=== PATIENT | female | born 1950 | race Asian ===

== ENCOUNTER → 2019-12-24 12:06 | Outpatient (CLI) | payer MEDICARE, OTHER, SELFPAY ==
--- NOTE | 2019-12-24 | DI.MG.S_ITS ---
BILATERAL DIGITAL SCREENING MAMMOGRAM 3D/2D WITH CAD: 12/24/2019 CLINICAL: Routine screening. Comparison is made to exams dated: 12/09/2017 mammogram, 05/14/2016 mammogram, and 05/16/2015 mammogram - [facility]. There are scattered fibroglandular elements in both breasts. Current study was also evaluated with a Computer Aided Detection (CAD) system. There is a focal asymmetry in the left breast at 8 o'clock posterior depth. No other significant masses, calcifications, or other findings are seen in either breast. IMPRESSION: INCOMPLETE: NEEDS ADDITIONAL IMAGING EVALUATION The focal asymmetry in the left breast is indeterminate. Additional views with possible ultrasound are recommended. This exam was interpreted at Station ID: [id number]. NOTE: For mammograms, a report in lay terms will be sent to the patient. Approximately 15% of breast malignancies will not be visualized mammographically. In the management of a palpable breast mass, a negative mammogram must not discourage biopsy of a clinically suspicious lesion. Electronically Signed By: Ana basurto/yesika:12/25/2019 09:53:25 letter sent: Additional Imaging Needed ACR BI-RADS Category 0: Incomplete 3340F
== END ==
PROVIDERS: Referring Provider Internal Medicine; Visit Provider Internal Medicine
DX: Z12.31 Encounter for screening mammogram for malignant neoplasm of breast (principal)
CPT/HCPCS: 77063; 77067

== ENCOUNTER → 2020-01-01 07:38 | Outpatient (CLI) | payer MEDICARE, OTHER, SELFPAY ==
--- NOTE | 2020-01-01 | DI.MG.S_ITS ---
UNILATERAL LEFT DIGITAL DIAGNOSTIC MAMMOGRAM 3D/2D WITH ADDITIONAL VIEWS: 01/01/2020 CLINICAL: Additional evaluation requested from prior study. Comparison is made to exams dated: 12/24/2019 mammogram - [facility], 12/09/2017 mammogram, and 05/14/2016 mammogram - [facility]. There are scattered fibroglandular elements in left breast. There is a persistent 1 cm focal asymmetry in the left breast at 7 o'clock middle depth. This is less prominent. No other significant masses or calcifications are seen in the breast. IMPRESSION: INCOMPLETE: NEEDS ADDITIONAL IMAGING EVALUATION The 1 cm focal asymmetry in the left breast is indeterminate. An ultrasound is recommended for further evaluation and is scheduled to immediately follow this study. This exam was interpreted at Station ID: [id number]. NOTE: For mammograms, a report in lay terms will be sent to the patient. Approximately 15% of breast malignancies will not be visualized mammographically. In the management of a palpable breast mass, a negative mammogram must not discourage biopsy of a clinically suspicious lesion. Electronically Signed By: Stanislaw Reddy M.D. aty/:01/01/2020 12:59:39 ACR BI-RADS Category 0: Incomplete 3340F
--- NOTE | 2020-01-01 | DI.US.S_ITS ---
ULTRASOUND OF LEFT BREAST: 01/01/2020 CLINICAL: Additional evaluation requested from prior study. Comparison is made to exams dated: 01/01/2020 mammogram, 12/24/2019 mammogram - [facility], 12/09/2017 mammogram, 05/14/2016 mammogram, and 05/16/2015 mammogram - [facility]. Color flow and real-time ultrasound of the left breast were performed. Avitia scale images of the real-time examination were reviewed. There is a 1.2 cm x 1 cm x 0.5 cm wider than tall oval cyst in the left breast at 7 o'clock middle depth 4 cm from the nipple. This oval cyst is hypoechoic with minimal internal echoes/debris and small peripheral versus adjacent coarse calcification. This correlates with mammography findings. Color flow imaging demonstrates that there is no vascularity present. There also is a 0.4 cm x 0.4 cm oval mass with a circumscribed margin in the left breast at 9 o'clock anterior depth 2 cm from the nipple. This oval mass is hypoechoic with a hyperechoic rim likely representing rim calcification and has associated posterior acoustic shadowing. Color flow imaging demonstrates that there is possible vascularity present versus twinkling artifact from calcification. Of note, there are similarly sized, benign oval calcifications in the left breast corresponding to this finding. IMPRESSION: PROBABLY BENIGN The 1.2 cm x 1 cm x 0.5 cm wider than tall oval cyst in the left breast at 7 o'clock middle depth most likely is a complicated cyst and is probably benign. The 0.4 cm x 0.4 cm oval mass in the left breast at 9 o'clock anterior depth likely represents a focus of dystrophic calcification versus probably benign mass. This is probably benign. A follow-up left mammogram and an ultrasound in 6 months is recommended to demonstrate stability. This exam was interpreted at Station ID: [id number]. Electronically Signed By: Stanislaw Reddy M.D. aty/:01/01/2020 13:08:46 letter sent: Followup Recommended Ultrasound BI-RADS: 3 Probably benign
== END ==
PROVIDERS: PCP Internal Medicine; Referring Provider Internal Medicine; Visit Provider Internal Medicine
DX: R92.8 Other abnormal and inconclusive findings on diagnostic imaging of breast (principal); N60.02 Solitary cyst of left breast; N63.25 Unspecified lump in the left breast, overlapping quadrants
CPT/HCPCS: 76642; 77065; G0279

== ENCOUNTER → 2021-04-20 09:02 | Outpatient (CLI) | payer MEDICARE, OTHER, SELFPAY ==
--- NOTE | 2021-04-20 | DI.US.S_ITS ---
LIMITED ULTRASOUND OF LEFT BREAST: 04/20/2021 CLINICAL: Patient returns for short term follow-up of a probably benign masses in the left breast. Comparison is made to exams dated: 04/20/2021 mammogram, 01/01/2020 ultrasound, 01/01/2020 mammogram, 12/24/2019 mammogram - [facility], 12/09/2017 mammogram, and 05/14/2016 mammogram - [facility]. Color flow and real-time ultrasound of the left breast 9 o'clock region were performed. Avitia scale images of the real-time examination were reviewed. There is a benign 0.6 cm x 0.7 cm x 0.2 cm wider than tall oval cyst in the left breast at 9 o'clock middle depth 4 cm from the nipple. This oval cyst is anechoic. This abnormality has decreased in size and correlates with findings of near complete resolution on mammogram. Color flow imaging demonstrates that there is no vascularity present. Incidental note made of stable 0.4 cm x 0.4 cm x 0.3 cm oval area of fibroglandular tissue with a circumscribed margin in the left breast at 9 o'clock anterior depth 2 cm from the nipple. This correlates as an incidental finding without distinct mammographic correlate and is adjacent to a prominent dystrophic calcification. Color flow imaging demonstrates that there is no vascularity present. IMPRESSION: BENIGN The 0.6 cm cyst in the left breast at 9 o'clock middle depth is consistent with a simple cyst and is benign. The 0.4 cm oval area of fibroglandular tissue in the left breast at 9 o'clock anterior depth is stable and appears benign. Return to annual mammogram screening schedule is recommended. Findings and recommendations were conveyed to the patient at time of exam. This exam was interpreted at Station ID: [id number]. Electronically Signed By: Pao avelar/:04/20/2021 10:50:54 letter sent: Normal Exam Ultrasound BI-RADS: 2 Benign
--- NOTE | 2021-04-20 | DI.MG.S_ITS ---
BILATERAL DIGITAL DIAGNOSTIC MAMMOGRAM 3D/2D SHORT-TERM FOLLOW-UP: 04/20/2021 CLINICAL: Short term follow up of the left breast, due for bilateral imaging. Comparison is made to exams dated: 01/01/2020 mammogram, 12/24/2019 mammogram - [facility], and 12/09/2017 mammogram - [facility]. There are scattered fibroglandular elements in both breasts. The oval focal asymmetry in the left breast at 7 o'clock middle depth is no longer seen. No other significant masses, calcifications, or other findings are seen in either breast. IMPRESSION: INCOMPLETE: NEEDS ADDITIONAL IMAGING EVALUATION An ultrasound is recommended to confirm resolution of the oval focal asymmetry in the left breast middle depth. This was performed immediately following this exam. Mammograms are otherwise stable. This exam was interpreted at Station ID: [id number]. NOTE: For mammograms, a report in lay terms will be sent to the patient. Approximately 15% of breast malignancies will not be visualized mammographically. In the management of a palpable breast mass, a negative mammogram must not discourage biopsy of a clinically suspicious lesion. Electronically Signed By: Pao avelar/:04/20/2021 10:16:19 ACR BI-RADS Category 0: Incomplete 3340F
== END ==
PROVIDERS: PCP Internal Medicine; Referring Provider Internal Medicine; Visit Provider Internal Medicine
DX: R92.8 Other abnormal and inconclusive findings on diagnostic imaging of breast (principal)
CPT/HCPCS: 76642; 77066; G0279

== ENCOUNTER 2023-01-02 09:06 | Emergency (ER) | payer MEDICARE, OTHER, SELFPAY ==
[2023-01-02 09:15] VITALS: BP 204/90; PULSE 92; RESP 18; TEMP 36.6; O2SAT 99; BMI 28.3
[2023-01-02 09:17] VITALS: PULSE 86; O2SAT 97
[2023-01-02 09:30] VITALS: BP 157/70; PULSE 77; O2SAT 98
[2023-01-02 10:00] VITALS: BP 129/60; PULSE 80; O2SAT 96
--- NOTE | 2023-01-02 10:09 | ED.SKABFB ---
HPI - Skin/Abscess/Foreign Bdy General Chief complaint: Skin/Abscess/Foreign Body Stated complaint: mole on buttocks is hurting Time Seen by Provider: 01/02/23 10:02 Source: patient Mode of arrival: Ambulatory Limitations: no limitations History of Present Illness HPI narrative: Patient here with complains of a skin lesion on the right inferior gluteus that has been there since she was a child. However 1 day ago had some clear drainage from it. No increased size of this lesion. It is a size of a pencil eraser head. Related Data Home Medications Medication Instructions Recorded Confirmed amlodipine 5 mg tablet 5 mg PO DAILY 01/02/23 01/02/23 apixaban 5 mg tablet (Eliquis) 5 mg PO BID 01/02/23 01/02/23 Previous Rx's Medication Instructions Recorded doxycycline monohydrate 100 mg 100 mg PO BID #10 caps 01/02/23 capsule Allergies Allergy/AdvReac Type Severity Reaction Status Date / Time aspirin Allergy Intermediate Hives Verified 01/02/23 09:23 Review of Systems Review of Systems Narrative: GENERAL: negative chills, fatigue, malaise, fever, sweats. HEENT: negative sinus pain, ear pain, sore throat RESPIRATORY: negative dyspnea, cough CARDIOVASCULAR: negative chest pain, palpitations GASTROINTESTINAL: negative nausea, vomiting, abdominal pain : negative dysuria, frequency, hematuria MUSCULOSKELETAL: negative muscle or bony pain SKIN: negative rash, positive skin lesions NEUROLOGIC: negative weakness, numbness ROS Unobtainable: All systems reviewed & are unremarkable except as noted in HPI and below Patient History Social History Smoking Status: Never smoker Smoking Status: Never smoker alcohol intake frequency: 0-2 drinks per day Substance Use Type: does not use Exam Narrative Exam Narrative: GENERAL: in no distress, not toxic not dyspneic HEAD: Normocephalic. EYES: Pupils equal round GASTROINTESTINAL: Abdomen soft, non-tender : Female nurse Razia at bedside to stitcher special machine. At the inferior right gluteus there is pencil eraser head size, lesion, possible basal cell/squamous cell carcinoma. Has regular sharp edges. Is not asymmetric. Has clear sharp borders. Color is uniform dark, no surrounding erythema or induration. No palpable fluctuance. NEURO: AOx4. SKIN: Warm and dry PSYCH: Not anxious, is cooperative Initial Vital Signs Initial Vital Signs: Vital Signs Temperature 97.9 F 01/02/23 09:15 Pulse Rate 92 H 01/02/23 09:15 Respiratory Rate 18 01/02/23 09:15 Blood Pressure 204/90 H 01/02/23 09:15 Pulse Oximetry 99 01/02/23 09:15 Oxygen Delivery Method 01/02/23 09:15 Course Orders Ordered: Discontinued Medications Doxycycline Hyclate (Doxycycline Hyclate 100 Mg Tablet) 100 mg PO NOW ONE Stop: 01/02/23 10:10 Last Admin: 01/02/23 10:25 Dose: 100 mg Documented By: NR Vital Signs Vital signs: Vital Signs - 8 hr 01/02/23 09:15 Temperature 97.9 F Pulse Rate 92 H Respiratory Rate 18 Blood Pressure 204/90 H Pulse Oximetry 99 Oxygen Delivery Method Room Air MDM - Skin/Abscess/Foreign Bdy MDM Narrative Medical decision making narrative: Patient here with complains of a skin lesion on the right inferior gluteus that has been there since she was a child. However 1 day ago had some clear drainage from it. No increased size of this lesion. It is a size of a pencil eraser head. After history and exam doxycycline has been ordered, no labs or imaging indicated this time. MDM CC: Skin lesion Complicating co-morbidities: Patient on Eliquis Data collected from: Patient and Medical records reviewed: No previous visits here for this complaint Differential considered: Includes but not limited to squamous cell carcinoma basal cell carcinoma melanoma/abscess Exam documented above, pertinent findings include: Raised mole Treatments: Doxycycline Re-evaluations: Blood pressure 129/60 at time of discharge. Patient in no distress. I did review with patient at this time no biopsy has we do not do them here in the ER. Appropriate for outpatient Dermatology evaluation. However appropriate for doxycycline since she did have recent fluid discharge from this area. Primary care is at the [facility] Discussion: Appropriate for discharge home. Blood pressure did improve at time of discharge. Likely anxious when she arrived. Patient in no distress. Exam otherwise reassuring. Will need outpatient referral for Dermatology and biopsy. Antibiotics have been started. Return precautions reviewed with her. She desires discharge home Diagnosis: Skin mole Discharge Plan Departure Patient Disposition: Home Clinical Impression: Skin mole Activity Restrictions/Additional Instructions: Please contact your [facility] primary care physician for referral to operations inspector for evaluation and possible biopsy of your skin mole. Prescription antibiotic has been started here, doxycycline, and has been sent to your [place] pharmacy in [place] to pecan picker today. Return if worse if any questions or concerns. Prescriptions: New doxycycline monohydrate 100 mg capsule 100 mg PO BID Qty: 10 0RF No Action amlodipine 5 mg tablet 5 mg PO DAILY Eliquis 5 mg Tablet 5 mg PO BID Referrals: Noreen Broderick ARNP [Primary Care Provider] - Stand Alone Forms: Patient Portal/API
[2023-01-02 10:23] VITALS: BP 163/69; PULSE 70; O2SAT 99
[2023-01-02] MEDS: DOXYCYCLINE HYCLATE 100 MG TABLET PO (10:25)
--- NOTE | 2023-01-02 10:27 | PC.NURSE ---
pt has mole on right buttock, near anus. pt states it has become sore and inflammed and she is unable to sleep. it popped a few days ago and some puss came out.
== END 2023-01-02 10:29 | disposition home or self-care (01) ==
PROVIDERS: Emergency Provider Emergency Medicine; PCP Nurse Practitioner Family
DX: D22.5 Melanocytic nevi of trunk (principal)
CPT/HCPCS: 99283

== ENCOUNTER 2023-05-01 07:50 | Emergency (ER) | payer MEDICARE, OTHER, SELFPAY ==
[2023-05-01] VITALS (17 sets, daily range): BP systolic 158–242; BP diastolic 70–103; PULSE 67–89; RESP 16–18; TEMP 36.4; O2SAT 94–99; BMI 28.9
[2023-05-01 08:42] LABS: Add Manual Diff / Slide Review NO; Basophils Absolute Auto 100 /uL (0-100); Basophils Percent Auto 1.1 % (0-2); Eosinophils Absolute Auto 300 /uL (0-450); Eosinophils Percent Auto 3.2 % (2-4); Hematocrit 44.5 % (36-46); Hemoglobin 15.3 g/dL (12.0-16.0); Lymphocytes Absolute Auto 2400 /uL (1100-4500); Mean Corpuscular HGB Conc 34.4 % (30-36); Mean Corpuscular Hemoglobin 29.4 PG (26-34); Mean Corpuscular Volume 85.4 fL (80-100); Monocytes Absolute Auto 800 /uL (0-900); Monocytes Percent Auto 9.8 % (3-14); Neutrophils Absolute Auto 4800 /uL (1500-7000); Neutrophils Percent Auto 56.9 % (50-75); Platelet Count 280 X10^3/uL (150-400); Red Cell Distribution Width 14.1 % (11.6-14.8); White Blood Cell Count 8.4 X10^3/uL (4.5-11.0)
[2023-05-01] MEDS: cefTRIAXone 2,000 MG in SODIUM CHLORIDE 0.9% 100 ML 200 MG IV (08:42)
[2023-05-01 08:55] LABS: Strep Grp A by PCR Rapid Negative (Negative)
[2023-05-01 09:01] LABS: Alanine Aminotransferase 34 IU/L (<35); Albumin 4.6 g/dL (3.5-5.0); Albumin Globulin Ratio 1.2 (1.0-2.8); Alkaline Phosphatase 85 U/L (38-126); Aspartate Aminotransferase 30 IU/L (14-36); BUN Creatinine Ratio 13.2 (6-22); Bilirubin Total 0.6 mg/dL (0.2-1.3); Blood Urea Nitrogen 9 mg/dL (7-17); Calcium 9.8 mg/dL (8.4-10.2); Carbon Dioxide 28 mmol/L (22-32); Chloride 105 mmol/L (98-107); Estimated Glomerular Filt Rate > 60 mL/min (>60); Globulin 3.7 g/dL (1.7-4.1); Glucose 80 mg/dL (80-110); HEMOLYSIS < 15 (0-50); Potassium 4.1 mmol/L (3.4-5.1); Sodium 141 mmol/L (137-145); Total Protein 8.3 g/dL (6.3-8.2)
[2023-05-01] MEDS: lisinopriL 10 MG TABLET PO (09:04)
--- NOTE | 2023-05-01 09:32 | ED.EAR ---
HPI - Ear Problem General Chief complaint: Ear Stated complaint: ear and throat is sore Time Seen by Provider: 05/01/23 08:11 History of Present Illness HPI Narrative: Patient here with her . Complains of right ear pain and right throat pain. This has been ongoing for the past 3 weeks. Has had watery discharge from the right ear. Has had pain with swallowing due to the right throat pain. Patient still has her tonsils. Patient admits using Q-tips regularly to clean her ears. Does not recall specific incident of injuring her ear. No blood from the ear. No trouble breathing, denies any drooling. Patient in no respiratory distress. She states she stopped her lisinopril 5 mg a day about a month ago because she thought it was related to her ear and throat pain. I informed her it is not. She is not seen any providers for this complaint. Patient denies any headache or chest pain or dyspnea or back pain or abdominal pain. Blood pressure noted. She does agree to take her lisinopril here. Related Data Home Medications Medication Instructions Recorded Confirmed amlodipine 5 mg tablet 5 mg PO DAILY 01/02/23 01/02/23 apixaban 5 mg tablet (Eliquis) 5 mg PO BID 01/02/23 01/02/23 Previous Rx's Medication Instructions Recorded doxycycline monohydrate 100 mg 100 mg PO BID #10 caps 01/02/23 capsule amoxicillin 875 mg-potassium 1 tab PO BID #20 tabs 05/01/23 clavulanate 125 mg tablet methylprednisolone 4 mg tablets in See Rx Instructions PO .COMPLEX 05/01/23 a dose pack (Medrol (Nicolas)) #21 ea Allergies Allergy/AdvReac Type Severity Reaction Status Date / Time aspirin Allergy Intermediate Hives Verified 01/02/23 09:23 Review of Systems Review of Systems Narrative: GENERAL: negative chills, fatigue, malaise, fever, sweats. HEENT: negative sinus pain, positive ear pain, sore throat RESPIRATORY: negative dyspnea, cough CARDIOVASCULAR: negative chest pain, palpitations GASTROINTESTINAL: negative nausea, vomiting, abdominal pain : negative dysuria, frequency, hematuria MUSCULOSKELETAL: negative muscle or bony pain SKIN: negative rash, skin lesions NEUROLOGIC: negative weakness, numbness ROS Unobtainable: All systems reviewed & are unremarkable except as noted in HPI and below Patient History Social History Smoking Status: Never smoker Smoking Status: Never smoker alcohol intake frequency: 0-2 drinks per day Substance Use Type: does not use Exam Narrative Exam Narrative: GENERAL: in no distress, not toxic not dyspneic HEAD: Normocephalic. EYES: Pupils equal round ENT: Mucous membranes moist. Examination right ear. The tympanic membrane is completely perforated. No blood in the canal. There is small serous fluid in the canal. Tragus is nontender. Mastoid is not tender. No discharge from the ear otherwise. Examination of the pharynx. There is edema of the right pharynx compared to the left. No uvular shift. Small punctate exudates on the right. No tongue elevation. No malocclusion or trismus. No drooling. NECK: Trachea midline. CARDIOVASCULAR: Regular rate and rhythm without murmurs RESPIRATORY: Clear to auscultation. Breath sounds equal bilaterally. No wheezes, rales, or rhonchi. GASTROINTESTINAL: Abdomen soft, non-tender EXTREMITIES: No gross deformities. BACK: No flank tenderness. NEURO: AOx4. SKIN: Warm and dry PSYCH: Not anxious, is cooperative Initial Vital Signs Initial Vital Signs: Vital Signs Temperature 97.6 F 05/01/23 07:56 Pulse Rate 89 05/01/23 07:56 Respiratory Rate 16 05/01/23 07:56 Blood Pressure 242/103 H 05/01/23 07:56 Pulse Oximetry 99 05/01/23 07:56 Oxygen Delivery Method Room Air 05/01/23 07:56 Course Orders Ordered: Discontinued Medications Ceftriaxone Sodium 2,000 mg/ (Sodium Chloride) 100 mls @ 200 mls/hr IV NOW ONE Stop: 05/01/23 08:26 Last Infusion: 05/01/23 09:12 Dose: 0 mls/hr Documented By: Admin: 05/01/23 08:42 Dose: 200 mls/hr Documented By: AT Sodium Chloride (Normal Saline 0.9%) 500 mls @ 1,000 mls/hr IV BOLUS ONE Stop: 05/01/23 10:24 Last Infusion: 05/01/23 10:47 Dose: 0 mls/hr Documented By: Admin: 05/01/23 10:19 Dose: 1,000 mls/hr Documented By: KB Dexamethasone 20 mg/ Sodium (Chloride) 52 mls @ 208 mls/hr IV NOW ONE Stop: 05/01/23 14:52 Last Infusion: 05/01/23 15:33 Dose: 0 mls/hr Documented By: Admin: 05/01/23 15:13 Dose: 208 mls/hr Documented By: LUCIE(2) Lisinopril (Lisinopril 10 Mg Tablet) 10 mg PO NOW ONE Stop: 05/01/23 08:23 Last Admin: 05/01/23 09:04 Dose: 10 mg Documented By: AT Vital Signs Vital signs: Vital Signs - 8 hr 05/01/23 12:45 05/01/23 12:46 05/01/23 12:46 Pulse Rate 85 Respiratory Rate Blood Pressure 213/88 H Pulse Oximetry 94 95 Oxygen Delivery Method Room Air 05/01/23 13:00 05/01/23 13:00 05/01/23 13:30 Pulse Rate 76 74 Respiratory Rate Blood Pressure 190/82 H Pulse Oximetry 99 98 Oxygen Delivery Method 05/01/23 13:31 05/01/23 13:31 05/01/23 14:00 Pulse Rate 75 Respiratory Rate Blood Pressure 192/91 H 180/83 H Pulse Oximetry 98 Oxygen Delivery Method Room Air 05/01/23 14:00 05/01/23 15:32 05/01/23 15:32 Pulse Rate 69 75 Respiratory Rate 18 18 Blood Pressure 200/89 H Pulse Oximetry 98 96 Oxygen Delivery Method Room Air Room Air 05/01/23 16:01 05/01/23 16:30 05/01/23 17:00 Pulse Rate Respiratory Rate Blood Pressure 181/80 H 184/81 H 210/88 H Pulse Oximetry Oxygen Delivery Method Medical Decision Making Lab Data 05/01/23 08:30 05/01/23 08:30 Labs: Lab Results 05/01/23 05/01/23 05/01/23 Range/Units 08:30 08:30 08:30 WBC 8.4 (4.5-11.0) X10^3/uL RBC 5.20 (4.0-5.2) X10^6/uL Hgb 15.3 (12.0-16.0) g/dL Hct 44.5 (36-46) % MCV 85.4 (80-100) fL MCH 29.4 (26-34) PG MCHC 34.4 (30-36) % RDW 14.1 (11.6-14.8) % Plt Count 280 (150-400) X10^3/uL Neut % (Auto) 56.9 (50-75) % Lymph % (Auto) 29.0 (25-40) % Mayes % (Auto) 9.8 (3-14) % Eos % (Auto) 3.2 (2-4) % Baso % (Auto) 1.1 (0-2) % Neut # (Auto) 4800 (4546-0129) /uL Lymph # (Auto) 2400 (3442-9875) /uL Mayes # (Auto) 800 (0-900) /uL Eos # (Auto) 300 (0-450) /uL Baso # (Auto) 100 (0-100) /uL Sodium 141 (137-145) mmol/L Potassium 4.1 (3.4-5.1) mmol/L Chloride 105 (98-107) mmol/L Carbon Dioxide 28 (22-32) mmol/L BUN 9 (7-17) mg/dL Creatinine 0.68 (0.52-1.04) mg/dL Estimated GFR > 60 (>60) mL/min BUN/Creatinine Ratio 13.2 (6-22) Glucose 80 (80-110) mg/dL Calcium 9.8 (8.4-10.2) mg/dL Total Bilirubin 0.6 (0.2-1.3) mg/dL AST 30 (14-36) IU/L ALT 34 (<35) IU/L Alkaline Phosphatase 85 (38-126) U/L Total Protein 8.3 H (6.3-8.2) g/dL Albumin 4.6 (3.5-5.0) g/dL Globulin 3.7 (1.7-4.1) g/dL Albumin/Globulin Ratio 1.2 (1.0-2.8) Group A Strep (PCR) Negative (Negative) Imaging Data Ultrasound soft tissue neck: Radiologist's Impression: [address] [address] Ultrasound Report Signed Patient: Radha Seo MR#: [id number] : 1950 Acct:[id number] Age/Sex: 72 / F Date of Service: 05/01/23 Loc: ED Accession Number: [id number] ?? Procedure: US soft tissue head and neck Ordering Provider: Ad Rodríguez MD PROCEDURE:? US SOFT TISSUE HEAD AND NECK ? INDICATIONS:? RIGHT PAROTID MASS ON CT ? TECHNIQUE:? Real-time scanning was performed of the neck region of interest, with image documentation.? ? COMPARISON:? [facility], CT, CT SOFT TISSUE NECK WITH CONTRAST, 05/01/2023, 11:59. ? FINDINGS:? The area of the probable 9 mm right parotid mass seen on CT was interrogated by ultrasound.? The mass was not identified. ? IMPRESSION:? The probable 9 mm right parotid region mass on CT is not identified by ultrasound.? However, it is felt to likely be a real finding. ? Comment:? Recommend follow-up CT or MRI of the neck with and without contrast in 2-3 months to document whether not this is a real parotid lesion, and to assess for stability.? ? ? Dictated by: Misha Dobbins M.D. on 05/01/2023 at 16:23 ? ? Approved by: Misha Dobbins M.D. on 05/01/2023 at 16:25 ? ECG Data Interpretation: Right peritonsillar abscess present., possible left parotid lesion measuring 9 mm MDM Narrative Medical decision making narrative: Patient here with her . Complains of right ear pain and right throat pain. This has been ongoing for the past 3 weeks. Has had watery discharge from the right ear. Has had pain with swallowing due to the right throat pain. Patient still has her tonsils. Patient admits using Q-tips regularly to clean her ears. Does not recall specific incident of injuring her ear. No blood from the ear. No trouble breathing, denies any drooling. Patient in no respiratory distress. She states she stopped her lisinopril 5 mg a day about a month ago because she thought it was related to her ear and throat pain. I informed her it is not. She is not seen any providers for this complaint. Patient denies any headache or chest pain or dyspnea or back pain or abdominal pain. Blood pressure noted. She does agree to take her lisinopril here. After history and exam CBC CMP strep swab CT soft tissue neck normal saline Rocephin MDM CC: Ear pain throat pain Complicating co-morbidities: High blood pressure Data collected from: Patient and Medical records reviewed: No recent visits for this complaint Differential considered: Includes but not limited to hypertension perforated tympanic membrane tonsillar abscess pharyngitis strep throat Exam documented above, pertinent findings include: Ruptured right tympanic membrane, swelling of right tonsil Lab Test results independently reviewed as above. Pertinent findings: WBC 8.4 group a strep negative Imaging studies independently reviewed: CT soft tissue neck right tonsillar pillar enlarge with tonsillar pillar abscess present. 9 mm left parotid lesion present. I did speak with Dr. Mu vuong, he would like to have ultrasound of the parotid. At 3:15 p.m.. He did call back and wanted a repeat ultrasound to view the parotid gland more closely Repeat ultrasound soft tissue neck no acute finding Consultations: 3:[address] Scottie Rushing, otolaryngology, patient can be discharged home after receiving Rocephin and Decadron here. Patient be discharged on Augmentin as well as Medrol Dosepak. He states he will follow up on the parotid gland lesion. No surgical intervention or biopsy indicated at this time. He will follow up regarding the ruptured eardrum as well. Treatments: Rocephin Decadron normal saline Re-evaluations: 10:37 a.m.. Updated patient and that we have to send to [facility] but written just for CT scan because our CAT scan machine is broken and she will be coming back here after the CT scan test 3:27 p.m.. Updated patient that radiologist would like repeat ultrasound of the parotid. Reviewed with patient and my discussion with otolaryngology and radiologist and they agree with treatment plan so far. 5:30 p.m.. Updated patient and results of secondary ultrasound. It is reassuring at this time. Patient has throat pain has improved. No drooling. Decadron she feels has decreased the swelling. No airway compromise. Trouble swallowing or breathing. Return precautions reviewed with them. They desire discharge home. Discussion: Appropriate for discharge home. Exam in laboratory studies otherwise reassuring. Airway intact. Handling secretions without any difficulty. No dyspnea. Rocephin and Decadron given here. Return precautions reviewed with patient and . I did speak with otolaryngology and patient will have follow-up this week. Regarding her blood pressure. She is asymptomatic. It did improve with lisinopril here but did rebound slightly up. It did improve though. She understand to resume her lisinopril 5 mg a day. She has not been taking it for the past 3 weeks or 4 weeks. Again she is asymptomatic Diagnosis: Tonsillar abscess/perforated tympanic membrane Discharge Plan Departure Patient Disposition: Home Clinical Impression: Tonsillar abscess, Perforated eardrum Instructions: Ruptured Eardrum, Soft Diet, DI for Peritonsillar Abscess -- Adult Activity Restrictions/Additional Instructions: Prescription Augmentin antibiotic has been sent to your [facility] in [place] to continue tomorrow for 10 days. Prescription for Medrol Dosepak, steroid, has been sent there as well for you to continue tomorrow. Return immediately if worse if any trouble breathing or swallowing. Or if any drooling. You do have an abscess in your tonsil that the ear nose and throat provider, Dr. Rushing, would like to try home antibiotics 1st. You will need in 2 or 3 months MRI of your parotid gland on the left side. This is not related to your problem today. You have a perforated/broken eardrum on the right side. Please do not use any Q-tips in the future. This likely ruptured when using your Q-tip. Dr. Rushing will see you for this as well, as well as for your parotid gland. Please continue soft foods at home. Crunchy or hard foods may irritate your tonsils more. Prescriptions: New methylprednisolone [Medrol (Nicolas)] 4 mg tablets,dose pack See Rx Instructions .ROUTE .COMPLEX Qty: 21 0RF Rx Instructions: orally per package directions amoxicillin-pot clavulanate 875-125 mg tablet 1 tab PO BID Qty: 20 0RF No Action amlodipine 5 mg tablet 5 mg PO DAILY Eliquis 5 mg Tablet 5 mg PO BID doxycycline monohydrate 100 mg capsule 100 mg PO BID Qty: 10 0RF Referrals: Scottie Rushing MD [Physician] - Provider,Saida FLOYD [Primary Care Provider] - Stand Alone Forms: Patient Portal/API
[2023-05-01] MEDS: SODIUM CHLORIDE 0.9% 500 ML 1000 ML IV (10:19)
--- NOTE | 2023-05-01 10:42 | PC.NURSE ---
Report given to NWA, pt on stretcher and transporting to [facility] for ordered CT Scan. Pt awake, alert, and oriented x4/4, breathing even and unlabored with no distress noted. Appropriate paperwork provided to NWA and faxed order to [facility]. [facility] DI contacted by Charge Yanni BURDICK. Pt and family aware and agree to plan.
--- NOTE | 2023-05-01 13:05 | DI.US.S_ITS ---
PROCEDURE: US SOFT TISSUE HEAD AND NECK INDICATIONS: RIGHT PAROTID MASS ON CT TECHNIQUE: Real-time scanning was performed of the neck region of interest, with image documentation. COMPARISON: [facility], CT, CT SOFT TISSUE NECK WITH CONTRAST, 05/01/2023, 11:59. FINDINGS: The area of the probable 9 mm right parotid mass seen on CT was interrogated by ultrasound. The mass was not identified. IMPRESSION: The probable 9 mm right parotid region mass on CT is not identified by ultrasound. However, it is felt to likely be a real finding. Comment: Recommend follow-up CT or MRI of the neck with and without contrast in 2-3 months to document whether not this is a real parotid lesion, and to assess for stability. Dictated by: Misha Dobbins M.D. on 05/01/2023 at 16:23 Approved by: Misha Dobbins M.D. on 05/01/2023 at 16:25
[2023-05-01] MEDS: dexAMETHasone 20 MG in SODIUM CHLORIDE 0.9% 50 ML 208 MG IV (15:13)
== END 2023-05-01 18:20 | disposition home or self-care (01) ==
PROVIDERS: Emergency Provider Emergency Medicine
DX: J36 Peritonsillar abscess (principal); H72.91 Unspecified perforation of tympanic membrane, right ear; I10 Essential (primary) hypertension
CPT/HCPCS: 36415; 76536; 80053; 85025; 87070; 87651; 96365; 96367; 99284; J0696; J1100

== ENCOUNTER 2024-11-26 10:40 | Emergency (ER) | payer MEDICARE, OTHER, SELFPAY ==
[2024-11-26 10:41] VITALS: BP 178/89; PULSE 80; RESP 14; TEMP 36.8; O2SAT 96; BMI 30.7
[2024-11-26 10:47] VITALS: PULSE 89; O2SAT 96
[2024-11-26 10:48] VITALS: BP 178/89; PULSE 85; O2SAT 96
--- NOTE | 2024-11-26 10:50 | EKG_ITS ---
[place] [id number] [place] [id number] Test Date: 2024-11-26 Pat Name: Radha Seo Department: [facility] Room: Gender: Female [facility]: ALTAF : 1950 Requested By: Order Number: [id number] Reading MD: Domingo Melgoza MD Measurements Intervals [employer] Rate: 76 P: -27 AK: 160 QRS: 39 QRSD: 88 T: 36 QT: 364 QTc: 409 Interpretive Statements Normal sinus rhythm Electronically Signed On 11-26-2024 16:25:13 PST by Domingo Melgoza MD
--- NOTE | 2024-11-26 10:50 | DI.RAD.S_ITS ---
PROCEDURE: XR CHEST 1V INDICATIONS: chest pain TECHNIQUE: One view of the chest was acquired. COMPARISON: None. FINDINGS: Surgical changes and devices: None. Lungs and pleura: Lungs are clear. No pleural effusions or pneumothorax. Mediastinum: Mediastinal contours appear normal. Heart size is normal. Bones and chest wall: No suspicious bony lesions. Overlying soft tissues appear unremarkable. IMPRESSION: No acute cardiopulmonary abnormality is seen. Dictated by: Alonzo Mari M.D. on 11/26/2024 at 11:21 Approved by: Alonzo Mari M.D. on 11/26/2024 at 11:21
[2024-11-26 11:00] VITALS: BP 181/78; PULSE 76; RESP 25; O2SAT 96
[2024-11-26 11:19] LABS: Add Manual Diff / Slide Review NO; Basophils Absolute Auto 100 /uL (0-100); Basophils Percent Auto 1.3 % (0-2); Eosinophils Absolute Auto 200 /uL (0-450); Eosinophils Percent Auto 2.3 % (2-4); Hematocrit 48.5 % (36-46); Hemoglobin 16.7 g/dL (12.0-16.0); Lymphocytes Absolute Auto 2500 /uL (1100-4500); Lymphocytes Percent Auto 35.9 % (25-40); Mean Corpuscular HGB Conc 34.4 % (30-36); Mean Corpuscular Hemoglobin 30.1 PG (26-34); Mean Corpuscular Volume 87.3 fL (80-100); Monocytes Absolute Auto 900 /uL (0-900); Monocytes Percent Auto 12.5 % (3-14); Neutrophils Absolute Auto 3400 /uL (1500-7000); Platelet Count 261 X10^3/uL (150-400); Red Blood Cell Count 5.55 X10^6/uL (4.0-5.2); Red Cell Distribution Width 14.2 % (11.6-14.8); White Blood Cell Count 7.1 X10^3/uL (4.5-11.0)
[2024-11-26 11:24] LABS: INR 0.9 (0.9-1.3); Prothrombin Time 10.7 SECONDS (9.4-12.5)
--- NOTE | 2024-11-26 11:26 | ED.DIZZY ---
HPI - Dizziness General Chief Complaint: Dizziness Stated Complaint: Right ear pain, dizzy Time Seen by Provider: 11/26/24 11:18 Source: patient, RN notes reviewed and old records reviewed Mode of arrival: Ambulatory Limitations: no limitations History of Present Illness HPI Narrative: 74-year-old female history of atrial fibrillation on Eliquis, hypertension dyslipidemia who presents with complaint of right ear pain and drainage dizziness patient states she has had symptoms of dizziness on and off since November 11 but about 3 days ago had recurrence describes as sort of spinning of the room particularly when she gets up out of bed. She states it does not seem to be worse when moving her head itself. She noticed some pain in her right ear she was also developed some drainage that she describes as sort of thickened clear. 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 She denies fevers. No vision changes no swelling of the external ear face or neck. No numbness, tingling or weakness no difficulty with speech or drooping of the face. Patient states pain is currently better in her ear but was present earlier today. She states home medications include Eliquis and medication for cholesterol hypertension and allergies. Reports an allergy to aspirin but states it has been about 44 year since that occurred. Denies any antibiotic allergies. Had a cystic size from her ovary remotely and a knee surgery in 2008. No tobacco, alcohol or recreational drugs. She follows through the [facility] for her primary care. Related Data Home Medications Medication Instructions Recorded Confirmed amlodipine 5 mg tablet 5 mg PO DAILY 01/02/23 01/02/23 apixaban 5 mg tablet (Eliquis) 5 mg PO BID 01/02/23 01/02/23 Previous Rx's Medication Instructions Recorded doxycycline monohydrate 100 mg 100 mg PO BID #10 caps 01/02/23 capsule amoxicillin 875 mg-potassium 1 tab PO BID #20 tabs 05/01/23 clavulanate 125 mg tablet methylprednisolone 4 mg tablets in See Rx Instructions PO .COMPLEX 05/01/23 a dose pack (Medrol (Nicolas)) #21 ea amoxicillin 875 mg-potassium 1 tab PO BID #20 tabs 11/26/24 clavulanate 125 mg tablet ciprofloxacin 0.2 %-hydrocortisone 3 drp EAR-RIGHT BID 10 days #10 mL 11/26/24 1 % ear drops,suspension (Cipro HC) Allergies Allergy/AdvReac Type Severity Reaction Status Date / Time aspirin Allergy Intermediate Hives Verified 11/26/24 10:51 Review of Systems Review of Systems ROS Unobtainable: All systems reviewed & are unremarkable except as noted in HPI and below Patient History Social History Smoking Status: Never smoker Smoking Status: Never smoker alcohol intake frequency: 0-2 drinks per day Exam Narrative Exam Narrative: GEN: well nourished, well appearing female, alert and oriented x 3, patient appears to be in mild distress. HEENT: Atraumatic, pupils are equal round reactive to light, extraocular movements are intact, nares are clear, left TM is retracted, no fluid canal is normal. Right TM has a little bit of bulge and fluid but the canal itself is quite narrowed and erythematous, no tenderness with palpation of the tragus. No external swelling or redness. There is no conjunctival pallor. Throat is clear without any exudates, erythema, tonsillar enlargement or uvular deviation, no facial droop. HEART: Regular rate and rhythm without murmur, clicks, rubs. No carotid bruits, pulses are equal in upper and lower extremities LUNGS:Lungs clear to auscultation, no wheezes, rales, crackles, chest moves symmetrically ABD:bowel sounds normal, soft, non-tender, no guarding, rebound, rigidity, no masses noted, no hepatosplenomegaly MSCL: Non-tender, no muscle atrophy, muscles strength 5/5 upper and lower extremities, full range of motion, normal gait NEURO:CN 2-12 intact, sensation normal Initial Vital Signs Initial Vital Signs: Vital Signs Temperature 98.3 F 11/26/24 10:41 Pulse Rate 80 11/26/24 10:41 Respiratory Rate 14 11/26/24 10:41 Blood Pressure 178/89 H 11/26/24 10:41 Pulse Oximetry 96 11/26/24 10:41 Oxygen Delivery Method Room Air 11/26/24 10:41 Course Orders Ordered: ED Orders 11/26/24 10:05 Complete Blood Count AUTO DIFF Stat Comprehensive Metabolic Panel Stat Lipase Stat Magnesium Stat NT-proBNP (BNP-Adult 18+) Stat PTT Partial Thromboplastin Joel Stat Prothrombin Time INR Stat Troponin & CK Cardiac Panel Stat 11/26/24 10:50 XR chest 1V Stat EKG-12 Lead Stat Vital Signs Vital signs: Vital Signs - 8 hr 11/26/24 11:00 11/26/24 11:00 11/26/24 11:30 Pulse Rate 76 Respiratory Rate 25 H Blood Pressure 181/78 H 159/73 H Pulse Oximetry 96 11/26/24 11:30 11/26/24 12:00 11/26/24 12:00 Pulse Rate 72 68 Respiratory Rate 20 19 Blood Pressure 164/74 H Pulse Oximetry 93 95 MDM - Dizziness Lab Data 11/26/24 10:05 11/26/24 10:05 Labs: Lab Results 11/26/24 Range/Units 10:05 WBC 7.1 (4.5-11.0) X10^3/uL RBC 5.55 H (4.0-5.2) X10^6/uL Hgb 16.7 H (12.0-16.0) g/dL Hct 48.5 H (36-46) % MCV 87.3 (80-100) fL MCH 30.1 (26-34) PG MCHC 34.4 (30-36) % RDW 14.2 (11.6-14.8) % Plt Count 261 (150-400) X10^3/uL Neut % (Auto) 48.0 L (50-75) % Lymph % (Auto) 35.9 (25-40) % [place] % (Auto) 12.5 (3-14) % Eos % (Auto) 2.3 (2-4) % Baso % (Auto) 1.3 (0-2) % Neut # (Auto) 3400 (4735-6318) /uL Lymph # (Auto) 2500 (6635-8373) /uL [place] # (Auto) 900 (0-900) /uL Eos # (Auto) 200 (0-450) /uL Baso # (Auto) 100 (0-100) /uL PT 10.7 (9.4-12.5) SECONDS INR 0.9 (0.9-1.3) APTT 38 H (25.1-36.5) SECONDS Sodium 139 (137-145) mmol/L Potassium 4.4 (3.4-5.1) mmol/L Chloride 106 (98-107) mmol/L Carbon Dioxide 26 (22-32) mmol/L BUN 17 (7-17) mg/dL Creatinine 0.68 (0.52-1.04) mg/dL Estimated GFR > 60 (>60) mL/min BUN/Creatinine Ratio 25.0 H (6-22) Glucose 139 H (80-110) mg/dL Calcium 10.4 H (8.4-10.2) mg/dL Magnesium 2.0 (1.6-2.3) mg/dL Total Bilirubin 0.7 (0.2-1.3) mg/dL AST 36 (14-36) IU/L ALT 35 H (<35) IU/L Alkaline Phosphatase 72 (38-126) U/L Total Creatine Kinase 95 (30-135) U/L Troponin I < 0.012 (0.01-0.034) ng/mL NT-Pro-B Natriuret Pep < 20 (<125) pg/mL Total Protein 8.4 H (6.3-8.2) g/dL Albumin 4.8 (3.5-5.0) g/dL Globulin 3.6 (1.7-4.1) g/dL Albumin/Globulin Ratio 1.3 (1.0-2.8) Lipase 207 (23-300) U/L Imaging Data Chest x-ray: Radiologist's Impression: Close Chest X-Ray (Signed) Alonzo Mari - 11/26/24 Head/Neck Ultrasound (Signed) Misha Dobbins - 05/01/23 DI Result 05/01/23 Mammogram Diagnostic (Signed) Pao Nichole - 04/20/21 Breast Ultrasound (Signed) Pao Nichole - 04/20/21 Mammogram, Additional Views (Signed) Stanislaw Reddy - 01/01/20 Breast Ultrasound (Signed) Stanislaw Reddy - 01/01/20 Mammogram Screening (Signed) Ana Romero - 12/24/19 Launch?[address] [address] XRay Report Signed Patient: Radha Seo MR#: [id number] : 1950 Acct:[id number] Age/Sex: 74 / F Date of Service: 11/26/24 Loc: ED Accession Number: [id number] Procedure: XR chest 1V Ordering Provider: Adela Rodriguez D.O. PROCEDURE: XR CHEST 1V INDICATIONS: chest pain TECHNIQUE: One view of the chest was acquired. COMPARISON: None. FINDINGS: Surgical changes and devices: None. Lungs and pleura: Lungs are clear. No pleural effusions or pneumothorax. Mediastinum: Mediastinal contours appear normal. Heart size is normal. Bones and chest wall: No suspicious bony lesions. Overlying soft tissues appear unremarkable. IMPRESSION: No acute cardiopulmonary abnormality is seen. Dictated by: Alonzo Mari M.D. on 11/26/2024 at 11:21 Approved by: Alonzo Mari M.D. on 11/26/2024 at 11:21 ECG Data Attestation: I personally reviewed and interpreted this ECG as follows: Interpretation: EKG shows sinus rhythm rate of 76 NV 160 QRS 88 QTC of 409, no acute ST elevation depression noted. MDM Narrative Medical decision making narrative: Labs labs show white count of 7.1 hemoglobin of 16.7 platelets of 261. Electrolytes are normal BUN creatinine normal glucose is 139 calcium is 10.4 ALT is 35. Troponin is less than 0.012 and BNP is less than 20 EKG shows sinus rhythm rate of 76 NV 160 QRS 88 QTC of 409, no acute ST elevation depression noted. Chest x-ray shows no acute change Patient exam shows what appears to be a rote right otitis externa possibly with a little bit of otitis media. Patient has a remote history in April of 2023 with perforation of the eardrum she states she has had some dizziness on and off recently and notes increased pain and drainage from the right ear. Suspect patient's dizziness is from her right ear infection. Patient did have labs EKG and imaging initiated by [facility]. We will start patient on ear drops but discussed start oral antibiotic if no improvement over the next couple days. Discussed return precautions all questions answered. Discharge Plan Departure Patient Disposition: Home Clinical Impression: Otitis externa Activity Restrictions/Additional Instructions: You have an infection of your ear I suspect his causing your current episode of dizziness. Use antibiotic ear drops as prescribed if you are not having any improvement there is an oral antibiotic included that you should start in the next 2-3 days or if you develop any fever. Prescription is printed and included in your paperwork. Please return for fevers, rapidly worsening pain, increasing drainage, swelling of the ear, neck or face, lightheadedness or passing out, vomiting, severe headaches, worsening dizziness or other new or concerning changes. Prescriptions: New Cipro HC 0.2-1 % drops,suspension 3 drp EAR-RIGHT BID 10 Days Qty: 10 0RF amoxicillin-pot clavulanate 875-125 mg tablet 1 tab PO BID Qty: 20 0RF No Action amlodipine 5 mg tablet 5 mg PO DAILY Eliquis 5 mg Tablet 5 mg PO BID doxycycline monohydrate 100 mg capsule 100 mg PO BID Qty: 10 0RF methylprednisolone [Medrol (Nicolas)] 4 mg tablets,dose pack See Rx Instructions .ROUTE .COMPLEX Qty: 21 0RF Rx Instructions: orally per package directions amoxicillin-pot clavulanate 875-125 mg tablet 1 tab PO BID Qty: 20 0RF Referrals: ProviderSaida [Primary Care Provider] - Stand Alone Forms: Patient Portal/API/Survey
[2024-11-26 11:27] LABS: PTT Partial Thromboplastin Tim 38 SECONDS (25.1-36.5)
[2024-11-26 11:30] VITALS: BP 159/73; PULSE 72; RESP 20; O2SAT 93
[2024-11-26 11:36] LABS: Alanine Aminotransferase 35 IU/L (<35); Albumin 4.8 g/dL (3.5-5.0); Albumin Globulin Ratio 1.3 (1.0-2.8); Alkaline Phosphatase 72 U/L (38-126); Aspartate Aminotransferase 36 IU/L (14-36); Bilirubin Total 0.7 mg/dL (0.2-1.3); Blood Urea Nitrogen 17 mg/dL (7-17); Calcium 10.4 mg/dL (8.4-10.2); Carbon Dioxide 26 mmol/L (22-32); Chloride 106 mmol/L (98-107); Creatine Kinase 95 U/L (30-135); Estimated Glomerular Filt Rate > 60 mL/min (>60); Globulin 3.6 g/dL (1.7-4.1); Glucose 139 mg/dL (80-110); Lipase 207 U/L (23-300); Potassium 4.4 mmol/L (3.4-5.1); Sodium 139 mmol/L (137-145); Total Protein 8.4 g/dL (6.3-8.2)
[2024-11-26 11:37] LABS: HEMOLYSIS 52 (0-50)
[2024-11-26 11:47] LABS: NT-proBNP (BNP-Adult 18+) < 20 pg/mL (<125); Troponin I < 0.012 ng/mL (0.01-0.034)
[2024-11-26 12:00] VITALS: BP 164/74; PULSE 68; RESP 19; O2SAT 95
== END 2024-11-26 12:16 | disposition home or self-care (01) ==
PROVIDERS: Emergency Provider Emergency Medicine
DX: H60.91 Unspecified otitis externa, right ear (principal); R07.9 Chest pain, unspecified; Z79.01 Long term (current) use of anticoagulants; R79.89 Other specified abnormal findings of blood chemistry
CPT/HCPCS: 36415; 71045; 80053; 82550; 83690; 83735; 83880; 84484; 85025; 85610; 85730; 93005; 93010; 99283; 99284

== ENCOUNTER 2024-12-05 10:32 | Emergency (ER) | payer MEDICARE, OTHER, SELFPAY ==
[2024-12-05 10:38] VITALS: PULSE 86; O2SAT 96
[2024-12-05 10:39] VITALS: BP 183/86; PULSE 79; O2SAT 95
[2024-12-05 10:44] VITALS: BP 183/86; PULSE 78; RESP 18; TEMP 36.8; O2SAT 95; BMI 31.1
--- NOTE | 2024-12-05 10:45 | ED_ITS ---
HPI - General Adult General Chief complaint: Dizziness Stated complaint: Dizzyness, R Ear Issues Time Seen by Provider: 12/05/24 10:42 History of Present Illness HPI narrative: 74-year-old woman with a history of hypertension, atrial fibrillation on Eliquis, hyperlipidemia she was seen in the emergency department on November 26 with complaints of ear pain. At that point she was on day 5 or 6 of mild upper respiratory symptoms. Was given ciprofloxacin ear drops to help with an otitis externa and told that if her symptoms worsened that she could fill a prescription for Augmentin which was also prescribed. The antibiotic prescription was prescribed and she has 2 more pills to take. She returns to the ER today noting that she is still having episodes of vertigo in his worried that she is getting worse. She has not having any fevers, there was no drainage from her ears, cough is resolved, minimal rhinorrhea at this point. No chest pain, palpitations, shortness for breath Related Data Home Medications Medication Instructions Recorded Confirmed amlodipine 5 mg tablet 5 mg PO DAILY 01/02/23 01/02/23 apixaban 5 mg tablet (Eliquis) 5 mg PO BID 01/02/23 01/02/23 Previous Rx's Medication Instructions Recorded doxycycline monohydrate 100 mg 100 mg PO BID #10 caps 01/02/23 capsule amoxicillin 875 mg-potassium 1 tab PO BID #20 tabs 05/01/23 clavulanate 125 mg tablet methylprednisolone 4 mg tablets in See Rx Instructions PO .COMPLEX 05/01/23 a dose pack (Medrol (Nicolas)) #21 ea amoxicillin 875 mg-potassium 1 tab PO BID #20 tabs 11/26/24 clavulanate 125 mg tablet ciprofloxacin 0.2 %-hydrocortisone 3 drp EAR-RIGHT BID 10 days #10 mL 11/26/24 1 % ear drops,suspension (Cipro HC) meclizine 25 mg tablet 25 mg PO TID PRN dizziness #20 tabs 12/05/24 oxymetazoline 0.05 % nasal spray 2 spray intranasal Q12H PRN nasal 12/05/24 (Afrin (oxymetazoline)) congestion 3 days #15 mL Allergies Allergy/AdvReac Type Severity Reaction Status Date / Time aspirin Allergy Intermediate Hives Verified 11/26/24 10:51 Review of Systems Review of Systems Narrative: Pertinent positive and negative findings as per HPI Patient History Social History Smoking Status: Never smoker Smoking Status: Never smoker alcohol intake frequency: 0-2 drinks per day Exam Initial Vital Signs Initial Vital Signs: General: Alert appropriate in no acute distress HEENT: Both tympanic membranes are slightly retracted, minor erythematous ring to the outer membrane on the right with resolved otitis externa. Minor continued cervical adenopathy. Posterior pharynx is slightly erythematous without exudate Respiratory: Able to speak in full sentences, no obvious respiratory distress Skin: No obvious rashes, warm and dry Neurologic: Grossly intact no obvious asymmetries or abnormalities, she is able to walk without difficulty in the dizziness comes in small waves that are not positional. She does not have nystagmus with BPV positional maneuvers. NIH score is 0 Psych: appropriate insight and affect, cooperative Medical Decision Making MDM Narrative Medical decision making narrative: 74-year-old woman with complaints of continued intermittent episodes of vertigo. Currently at the resolving and of mild upper respiratory infection, subsequent right otitis with completed antibiotics and no significant redness but still has a serous effusion on the right side. She does occasionally use Flonase spray. We talked about continued use of Flonase, adding Afrin spray for the next 3-4 days to try and decrease inflammation in the posterior pharynx to encourage the effusion to drain. I suspect the viral syndrome and ear infection are the source of her transient episodes of vertigo. There is no evidence of stroke on clinical exam today and thorough medical evaluation was done on the with no significant findings. We will give her meclizine to help with symptomatic treatment of the vertigo. Encouraged her to complete the last 2 doses of her Augmentin for the right ear infection. Currently there was no indication for additional blood work or imaging. Questions were reviewed in detail and she is safe for discharge Discharge Plan Departure Patient Disposition: Home Clinical Impression: Vertigo, Acute upper respiratory infection Otitis media Qualifiers: Otitis media type: serous Chronicity: acute Laterality: right Recurrence: non- recurrent Qualified Code(s): H65.01 - Acute serous otitis media, right ear Instructions: DI for Dizziness-Nonvertigo Activity Restrictions/Additional Instructions: Thank you for coming in today I think your dizziness is still related to your recent cold and the continued fluid in your right ear. You can use meclizine 25 mg 3 times a day as needed for dizziness. Do not continue this medication if it does not help. Regarding your ear infection, the antibiotics need to be completed and have treated the bacterial part of the ear infection. You still have fluid in the middle of your right ear that needs to drain. It should drain through the Eustachian tube. This is the tube that goes from the middle ear to the back of your throat. After a cold, it is common to have swelling in the back of your throat that makes it hard for that tube to drain. I would like you to continue your Flonase nasal spray as prescribed I am going to give you a prescription for Afrin nose spray. This works differently and helps reduce swelling in your nose and the back of your throat. Please use 2 sprays each side of your nose morning and night for the next 3-4 days. These prescriptions were [facility] in [place] If you find that you are getting worse or develop any new symptoms, please feel free to return to the emergency department for further evaluation. Prescriptions: New oxymetazoline [Afrin (oxymetazoline)] 0.05 % spray,non-aerosol 2 spray intranasal Q12H PRN (Reason: nasal congestion) 3 Days Qty: 15 0RF meclizine 25 mg tablet 25 mg PO TID PRN (Reason: dizziness) Qty: 20 0RF No Action amlodipine 5 mg tablet 5 mg PO DAILY Eliquis 5 mg Tablet 5 mg PO BID doxycycline monohydrate 100 mg capsule 100 mg PO BID Qty: 10 0RF methylprednisolone [Medrol (Nicolas)] 4 mg tablets,dose pack See Rx Instructions .ROUTE .COMPLEX Qty: 21 0RF Rx Instructions: orally per package directions amoxicillin-pot clavulanate 875-125 mg tablet 1 tab PO BID Qty: 20 0RF Cipro HC 0.2-1 % drops,suspension 3 drp EAR-RIGHT BID 10 Days Qty: 10 0RF amoxicillin-pot clavulanate 875-125 mg tablet 1 tab PO BID Qty: 20 0RF Referrals: ProviderSaida [Primary Care Provider] - Stand Alone Forms: Patient Portal/API/Survey
[2024-12-05] MEDS: MECLIZINE HCL 12.5 MG TABLET 25 MG PO (10:59)
[2024-12-05 11:00] VITALS: PULSE 76; RESP 18; O2SAT 95
[2024-12-05 11:01] VITALS: BP 192/83; PULSE 72; RESP 16; O2SAT 93
== END 2024-12-05 11:17 | disposition home or self-care (01) ==
PROVIDERS: Emergency Provider Emergency Medicine
DX: R42 Dizziness and giddiness (principal); J06.9 Acute upper respiratory infection, unspecified; H65.01 Acute serous otitis media, right ear; Z79.01 Long term (current) use of anticoagulants
CPT/HCPCS: 99283

== ENCOUNTER 2025-07-27 10:04 | Emergency (ER) | payer MEDICARE, OTHER, SELFPAY ==
[2025-07-27] VITALS (9 sets, daily range): BP systolic 180–196; BP diastolic 74–79; PULSE 80–99; RESP 16–30; TEMP 36.3; O2SAT 94–98; BMI 33.3
--- NOTE | 2025-07-27 10:19 | ED.DIZZY ---
HPI - Dizziness General Chief Complaint: Dizziness Stated Complaint: Fell feeling Dizzy this morning Time Seen by Provider: 07/27/25 10:19 History of Present Illness HPI Narrative: Patient is a 75-year-old female with a past medical history of hypertension, AFib on Eliquis, hyperlipidemia, comes into the ED from home for evaluation of dizziness, she states that she woke up today started walking felt dizzy and ended up falling. She denies any syncope or presyncopal symptoms, she states that she felt dizzy and unstable which is the reason why she fell. She states it has happened in the past and it was secondary to an ear infection. At time of evaluation NIH of 0 states that she feels better. Denies any other symptoms such as headache visual disturbances chest pain shortness breath fever chills nausea vomiting abdominal pain or any other GI/ symptoms time. Related Data Home Medications ?Medication ?Instructions ?Recorded ?Confirmed amlodipine 5 mg tablet 5 mg PO DAILY 01/02/23 01/02/23 apixaban 5 mg tablet (Eliquis) 5 mg PO BID 01/02/23 01/02/23 Previous Rx's ?Medication ?Instructions ?Recorded doxycycline monohydrate 100 mg 100 mg PO BID #10 caps 01/02/23 capsule amoxicillin 875 mg-potassium 1 tab PO BID #20 tabs 05/01/23 clavulanate 125 mg tablet methylprednisolone 4 mg tablets in See Rx Instructions PO .COMPLEX 05/01/23 a dose pack (Medrol (Nicolas)) #21 ea amoxicillin 875 mg-potassium 1 tab PO BID #20 tabs 11/26/24 clavulanate 125 mg tablet meclizine 25 mg tablet 25 mg PO TID PRN dizziness #20 tabs 12/05/24 doxycycline hyclate 100 mg capsule 100 mg PO BID 1 week #14 caps 07/27/25 Allergies Allergy/AdvReac Type Severity Reaction Status Date / Time aspirin Allergy Intermediate Hives Verified 07/27/25 10:33 Review of Systems Review of Systems Narrative: General: Denies fever, chills, weight loss HEENT: Denies headache, eye drainage, eye irritation, head trauma, sore throat, voice change Cardiovascular: Denies any chest pain, palpitations, tachycardia Respiratory: Denies any shortness of breath, cough, wheeze, stridor GI/: Denies any abdominal pain, nausea, vomiting, diarrhea, bright red blood per rectum, melanotic stools, urinary frequency, urinary retention, dysuria, hematuria MSK: Denies any joint pain, muscle pains, swelling Skin: Denies any rashes, lesions, discoloration Neuro: Positive light-headedness, fall Denies any headache, fainting, weakness Psych: Denies SI/HI Patient History Social History Smoking Status: Former smoker alcohol intake frequency: 0-2 drinks per day Exam Narrative Exam Narrative: General: Cooperative, well-developed, not in acute distress HEENT: Normocephalic, atraumatic, PERRLA, normal sclera, eyelids normal Neck: Active full range of motion, atraumatic Chest: Normal to inspection, negative crepitus, no overlying erythema ecchymosis Respiratory: Normal respiratory effort, not in acute respiratory distress, clear to auscultation bilaterally negative cough, wheeze, tachypnea, rhonchi, rales Cardiology: Regular rate rhythm negative gallop, murmur, rubs GI/: No tenderness to palpation, soft, non rigid, normal to inspection, exam deferred MSK: Full active range of motion in all 4 extremities, atraumatic, no tenderness to palpation of any bony prominences Skin: No rashes or lesions noted Neuro: NIH of 0, no focal deficits she was able to stand bear weight ambulate unassisted here in the emergency department Alert awake oriented x3, moves all 4 extremities spontaneously, cranial nerves intact, able to answer all questions appropriately follows commands appropriately Psych: Cooperative, negative suicidal or homicidal ideations Initial Vital Signs Initial Vital Signs: Vital Signs Blood Pressure 180/74 H 07/27/25 10:19 Course Orders Ordered: ED Orders 07/27/25 10:22 XR chest 1V Stat EKG-12 Lead Stat 07/27/25 10:23 CT angio head and neck Stat CT head/brain wo con Stat 07/27/25 10:36 Complete Blood Count AUTO DIFF Stat Comprehensive Metabolic Panel Stat Lipase Stat NT-proBNP (BNP-Adult 18+) Stat PTT Partial Thromboplastin Joel Stat Prothrombin Time INR Stat Troponin & CK Cardiac Panel Stat Discontinued Medications Sodium Chloride (Normal Saline 0.9%) 1,000 mls @ 1,000 mls/hr IV BOLUS ONE Stop: 07/27/25 11:21 Last Admin: 07/27/25 10:43 Dose: 1,000 mls/hr Documented By: SHOBHA Meclizine HCl (Meclizine Hcl 12.5 Mg Tablet) 25 mg PO NOW ONE Stop: 07/27/25 10:23 Last Admin: 07/27/25 10:43 Dose: 25 mg Documented By: SHOBHA Vital Signs Vital signs: Vital Signs - 8 hr 07/27/25 10:19 07/27/25 10:20 07/27/25 10:30 Temperature Pulse Rate 99 H 99 H Respiratory Rate 25 H Blood Pressure 180/74 H Pulse Oximetry 97 94 Oxygen Delivery Method 07/27/25 10:33 07/27/25 11:00 07/27/25 11:28 Temperature 97.4 F L Pulse Rate 94 H 80 99 H Respiratory Rate 16 21 26 H Blood Pressure 180/74 H Pulse Oximetry 96 97 94 Oxygen Delivery Method Room Air 07/27/25 11:28 07/27/25 11:30 Temperature Pulse Rate 90 Respiratory Rate 25 H Blood Pressure 196/79 H Pulse Oximetry 98 Oxygen Delivery Method MDM - Dizziness Lab Data 07/27/25 10:36 07/27/25 10:36 Labs: Lab Results 07/27/25 Range/Units 10:36 WBC 6.2 (4.5-11.0) X10^3/uL RBC 5.54 H (4.0-5.2) X10^6/uL Hgb 16.5 H (12.0-16.0) g/dL Hct 48.9 H (36-46) % MCV 88.4 (80-100) fL MCH 29.9 (26-34) PG MCHC 33.8 (30-36) % RDW 14.2 (11.6-14.8) % Plt Count 260 (150-400) X10^3/uL Neut % (Auto) 50.1 (50-75) % Lymph % (Auto) 37.2 (25-40) % Grand % (Auto) 8.7 (3-14) % Eos % (Auto) 2.7 (2-4) % Baso % (Auto) 1.3 (0-2) % Neut # (Auto) 3100 (2795-0320) /uL Lymph # (Auto) 2300 (9921-3212) /uL Grand # (Auto) 500 (0-900) /uL Eos # (Auto) 200 (0-450) /uL Baso # (Auto) 100 (0-100) /uL PT 10.3 (9.4-12.5) SECONDS INR 0.9 (0.9-1.3) APTT 35 (25.1-36.5) SECONDS Sodium 138 (137-145) mmol/L Potassium 4.3 (3.4-5.1) mmol/L Chloride 104 (98-107) mmol/L Carbon Dioxide 22 (22-32) mmol/L BUN 11 (7-17) mg/dL Creatinine 0.75 (0.52-1.04) mg/dL Estimated GFR > 60 (>60) mL/min BUN/Creatinine Ratio 14.7 (6-22) Glucose 253 H (70-99) mg/dL Calcium 10.2 (8.4-10.2) mg/dL Total Bilirubin 0.8 (0.2-1.3) mg/dL AST 37 H (14-36) IU/L ALT 33 (<35) IU/L Alkaline Phosphatase 72 (38-126) U/L Total Creatine Kinase 93 (30-135) U/L Troponin I < 0.012 (0.01-0.034) ng/mL NT-Pro-B Natriuret Pep < 20 (<450) pg/mL Total Protein 8.4 H (6.3-8.2) g/dL Albumin 4.9 (3.5-5.0) g/dL Globulin 3.5 (1.7-4.1) g/dL Albumin/Globulin Ratio 1.4 (1.0-2.8) Lipase 213 (23-300) U/L ECG Data Interpretation: EKG interpreted ED physician sinus 92 beats per minute QTC 435, normal axis, QRS DE interval within normal limits, no STEMI MDM Narrative Medical decision making narrative: 75-year-old female with a past medical history of hyperlipidemia AFib on Eliquis, hypertension, comes into the ED from home for evaluation of dizziness fall, states that she got up this morning at around 3:00 a.m., states that she felt dizzy and ended up falling onto her has been, denies head strike denies LOC, states that she feels better but because she is still having intermittent dizziness decided come into the ED for further evaluation treatment. Patient has been eating stand bear weight ambulate unassisted here in the emergency department. She has NIH of 0 at time of my evaluation. She denies any other symptoms such as chest pain shortness breath headache visual disturbance. Patient had lab work imaging EKG performed here in the emergency department. EKG nonischemic in nature. Patient's chest x-ray does show right-sided pneumonia, here with a curb 65 and 1 not requiring any supplemental oxygen CT head CT angio head and neck without any acute findings, symptoms more likely secondary to infection therefore we will give 1st dose of antibiotics here and instructed follow up with primary care. She verbalized understanding of this and agrees to being discharged home with outpatient follow up Discharge Plan Departure Patient Disposition: Home Clinical Impression: Pneumonia Instructions: DI for Pneumonia -- Adult Activity Restrictions/Additional Instructions: Please follow up with the primary care doctor as needed Please read the discharge instructions sheet carefully and bring all papers to all doctor follow-up visits, as it may contain information that your doctor may want to see. Disease processes change and evolve, if your symptoms worsen or if you develop any new symptoms that are concerning to you please return for evaluation. Your evaluation today does not show any evidence of any life-threatening/serious illnesses requiring admission to the hospital or surgery. Please follow-up with your doctor for re-evaluation in approximately 1 day. Seek immediate medical attention for any worrisome symptoms. *If you do not have a primary care provider please contact the [facility] Resource line at [phone]. They will ask some questions about your medical history and help get you set up with a doctor in the community. Prescriptions: New doxycycline hyclate 100 mg capsule 100 mg PO BID 7 Days Qty: 14 0RF No Action amlodipine 5 mg tablet 5 mg PO DAILY Eliquis 5 mg Tablet 5 mg PO BID doxycycline monohydrate 100 mg capsule 100 mg PO BID Qty: 10 0RF methylprednisolone [Medrol (Nicolsa)] 4 mg tablets,dose pack See Rx Instructions .ROUTE .COMPLEX Qty: 21 0RF Rx Instructions: orally per package directions amoxicillin-pot clavulanate 875-125 mg tablet 1 tab PO BID Qty: 20 0RF amoxicillin-pot clavulanate 875-125 mg tablet 1 tab PO BID Qty: 20 0RF meclizine 25 mg tablet 25 mg PO TID PRN (Reason: dizziness) Qty: 20 0RF Referrals: ProviderSaida [Primary Care Provider, Family Practice] Stand Alone Forms: Patient Portal/API
--- NOTE | 2025-07-27 10:22 | DI.RAD.S_ITS ---
PROCEDURE: XR CHEST 1V INDICATIONS: dizziness TECHNIQUE: One view of the chest was acquired. COMPARISON: [facility], CR, XR CHEST 1V, 11/26/2024, 10:49. FINDINGS: Surgical changes and devices: None. Lungs and pleura: Subtle opacity at left lung base is seen concerning for small infiltrate versus atelectasis. No pleural effusions or pneumothorax. Mediastinum: Mildly tortuous thoracic aorta. Heart size is mildly enlarged. Bones and chest wall: No suspicious bony lesions. Overlying soft tissues appear unremarkable. IMPRESSION: Finding is concerning for left infrahilar infiltrate/atelectasis. Clinical correlation and follow-up is recommended. No pleural effusion or pneumothorax. Dictated by: Abisai Centeno M.D. on 07/27/2025 at 10:52 Approved by: Abisai Centeno M.D. on 07/27/2025 at 10:53
--- NOTE | 2025-07-27 10:23 | DI.CT.S_ITS ---
PROCEDURE: CT HEAD/BRAIN WO CON INDICATIONS: Dizziness TECHNIQUE: Noncontrast 4.5 mm thick angled axial sections acquired from the foramen magnum to the vertex, with coronal and sagittal reformats. For radiation dose reduction, the following was used: automated exposure control, adjustment of mA and/or kV according to patient size. COMPARISON: [facility], CT, CT SOFT TISSUE NECK WITH CONTRAST, 05/01/2023, 11:59. FINDINGS: Image quality: Diagnostic. CSF spaces: Basal cisterns are patent. No extra-axial fluid collections. The ventricles are symmetric in size and shape. Brain: No intracranial bleeds or mass effect. There is cerebral volume loss, with resultant ventricular and sulcal prominence. There are periventricular and deep white matter chronic small vessel ischemic changes. There is intracranial internal carotid artery atherosclerosis. Skull and face: Calvarium and visualized facial bones appear intact, without suspicious lesions. Sinuses: Retention cyst versus mucocele in left maxillary sinus is seen. Bilateral mastoid air cells are well aerated. IMPRESSION: 1. No acute intracranial pathology. 2. Age related volume loss and [id number] white matter chronic small vessel ischemic changes. Dictated by: Abisai Centeno M.D. on 07/27/2025 at 11:36 Approved by: Abisai Centeno M.D. on 07/27/2025 at 11:37
--- NOTE | 2025-07-27 10:23 | DI.CT.S_ITS ---
PROCEDURE: CT ANGIO HEAD AND NECK INDICATIONS: Dizziness TECHNIQUE: After the administration of intravenous contrast, 1 mm thick sections acquired from the aortic arch through the [place] of [place]. 3-dimensional xyivkni-wipwyskre-zdrceftovs (MIP) and/or volume rendering reformats were acquired of the central intracranial vasculature and neck separately. For radiation dose reduction, the following was used: automated exposure control, adjustment of mA and/or kV according to patient size. COMPARISON: None. FINDINGS: Image quality: Diagnostic. Cerebral CT Angiogram: Internal carotid arteries: No acute findings. Intracranial ICA are patent with no significant stenosis. No occlusion. No aneurysm. Anterior cerebral arteries: Unremarkable. No significant stenosis. No occlusion. No aneurysm. Middle cerebral arteries: Unremarkable. No significant stenosis. No occlusion. No aneurysm. Posterior cerebral arteries: Unremarkable. No significant stenosis. No occlusion. No aneurysm. Basilar artery: Unremarkable. No significant stenosis. No occlusion. No aneurysm. Vertebral arteries: Unremarkable as visualized. Dural venous sinuses: Unremarkable given phase of enhancement. Other: Arterial phase appearance of the brain parenchyma is unremarkable. Neck CT Angiogram: Internal carotid arteries: Unremarkable. No significant stenosis. No dissection or occlusion. Common carotid arteries: Unremarkable. No significant stenosis. No dissection or occlusion. External carotid arteries: Unremarkable. No occlusion. Vertebral arteries: Unremarkable. No significant stenosis. No dissection or occlusion. Aortic Arch and Mediastinum: Partially visualized aortic arch unremarkable without evidence of aneurysm. Origins of the great vessels unremarkable. Other: Arterial phase soft tissues of the neck and chest are unremarkable. IMPRESSION: 1. No significant intracranial arterial abnormality is seen. 2. No significant abnormality is seen within the arteries of the neck. Any quantitative measurements of stenosis were performed using NASCET criteria. Dictated by: Abisai Centeno M.D. on 07/27/2025 at 11:37 Approved by: Abisai Centeno M.D. on 07/27/2025 at 11:41
--- NOTE | 2025-07-27 10:26 | EKG_ITS ---
[address] [address] Test Date: 2025-07-27 Pat Name: Radha Seo Department: Room: Gender: Female Scheduling Agent: RHEA : 1950 Requested By: Order Number: [id number] Reading MD: Rogelio Kennedy Measurements Intervals [place] Rate: 92 P: 38 WY: 160 QRS: 17 QRSD: 92 T: 26 QT: 352 QTc: 435 Interpretive Statements Normal sinus rhythm Electronically Signed On 07-27-2025 17:29:19 PDT by Rogelio Kennedy
[2025-07-27] MEDS: MECLIZINE HCL 12.5 MG TABLET 25 MG PO (10:43)
[2025-07-27] MEDS: SODIUM CHLORIDE 0.9% 1,000 ML 1000 ML IV (10:43)
[2025-07-27 10:48] LABS: Add Manual Diff / Slide Review NO; Hematocrit 48.9 % (36-46); Hemoglobin 16.5 g/dL (12.0-16.0); Lymphocytes Absolute Auto 2300 /uL (1100-4500); Mean Corpuscular HGB Conc 33.8 % (30-36); Mean Corpuscular Hemoglobin 29.9 PG (26-34); Mean Corpuscular Volume 88.4 fL (80-100); Platelet Count 260 X10^3/uL (150-400)
[2025-07-27 10:54] LABS: INR 0.9 (0.9-1.3); Prothrombin Time 10.3 SECONDS (9.4-12.5)
[2025-07-27 10:57] LABS: PTT Partial Thromboplastin Tim 35 SECONDS (25.1-36.5)
[2025-07-27 10:59] LABS: Alanine Aminotransferase 33 IU/L (<35); Albumin 4.9 g/dL (3.5-5.0); Albumin Globulin Ratio 1.4 (1.0-2.8); Alkaline Phosphatase 72 U/L (38-126); Blood Urea Nitrogen 11 mg/dL (7-17); Calcium 10.2 mg/dL (8.4-10.2); Carbon Dioxide 22 mmol/L (22-32); Chloride 104 mmol/L (98-107); Creatine Kinase 93 U/L (30-135); Estimated Glomerular Filt Rate > 60 mL/min (>60); Globulin 3.5 g/dL (1.7-4.1); Glucose 253 mg/dL (70-99); HEMOLYSIS 32 (0-50); Lipase 213 U/L (23-300); Potassium 4.3 mmol/L (3.4-5.1); Sodium 138 mmol/L (137-145); Total Protein 8.4 g/dL (6.3-8.2)
[2025-07-27 11:09] LABS: NT-proBNP (BNP-Adult 18+) < 20 pg/mL (<450)
[2025-07-27 11:11] LABS: Troponin I < 0.012 ng/mL (0.01-0.034)
[2025-07-27] MEDS: DOXYCYCLINE HYCLATE 100 MG TABLET PO (12:16)
== END 2025-07-27 12:23 | disposition home or self-care (01) ==
PROVIDERS: Emergency Provider Student in an Organized Health Care Education/Training Program
DX: J18.9 Pneumonia, unspecified organism (principal); R29.700 NIHSS score 0; Z79.01 Long term (current) use of anticoagulants
CPT/HCPCS: 70450; 70496; 70498; 71045; 80053; 82550; 83690; 83880; 84484; 85025; 85610; 85730; 93005; 96360; 96361; 99284; Q9967

== ENCOUNTER 2025-08-09 10:41 | Emergency (ER) | payer MEDICARE, OTHER, SELFPAY ==
[2025-08-09 10:47] VITALS: BP 202/84; PULSE 84; RESP 18; TEMP 36.6; O2SAT 95; BMI 31.6
--- NOTE | 2025-08-09 10:52 | EKG_ITS ---
[address] [address] Test Date: 2025-08-09 Pat Name: Radha Seo Department: Room: Gender: Female Family Law Mediator: RHEA : 1950 Requested By: Order Number: [id number] Reading MD: Domingo Melgoza MD Measurements Intervals [place] Rate: 85 P: 47 MS: 176 QRS: 19 QRSD: 78 T: 26 QT: 346 QTc: 411 Interpretive Statements Normal sinus rhythm Electronically Signed On 08-09-2025 12:02:21 PDT by Domingo Melgoza MD
[2025-08-09 10:57] VITALS: BP 143/68; PULSE 77; RESP 19; O2SAT 97
[2025-08-09 11:00] VITALS: BP 142/63; PULSE 73; RESP 18; O2SAT 96
[2025-08-09 11:30] VITALS: BP 154/68; PULSE 66; RESP 18; O2SAT 97
--- NOTE | 2025-08-09 11:55 | ED.DIZZY ---
HPI - Dizziness General Chief Complaint: Dizziness Stated Complaint: Still feeling Dizzy from last ER visit Time Seen by Provider: 08/09/25 11:55 Source: patient, RN notes reviewed and old records reviewed Mode of arrival: Ambulatory Limitations: no limitations History of Present Illness HPI Narrative: 75-year-old female history of hypertension, atrial fibrillation on Eliquis, dyslipidemia was seen on 07/27/2025 for dizziness was found to have a right-sided pneumonia and treated with oral antibiotics. Patient presents today states no improvement in symptoms. Patient presents with persistent symptoms that started around 07/27/2025 patient states she feels dizzy. She describes little bit of vertigo sensations particularly when in bed and rolling around or moving her head [id number] when she looks over her shoulder. Patient states it is intermittent but has been persistent. She is able to ambulate normally. She denies severe headaches but has had some mild frontal headaches, no sudden vision changes. No numbness tingling or weakness. No difficulty with moving her extremities, nose changes to speech. Patient states she had similar episode in the past was found to had an ear infection was treated with oral antibiotics had improvement. She states it was very similar to this episode. She denies fevers chills no nausea or vomiting or other GI or urinary symptoms. States she is on anticoagulant medication for atrial fibrillation, hypertension dyslipidemia. Home medications include her loratadine, atorvastatin, amlodipine eyedrops and fluticasone. Has a remote history of knee surgery and surgery for ovarian cysts in the 1980s. Reports an allergy to aspirin with hives and red eyes. No tobacco, alcohol or recreational drugs. Her primary care is through the [facility]. Related Data Home Medications ?Medication ?Instructions ?Recorded ?Confirmed amlodipine 5 mg tablet 5 mg PO DAILY 01/02/23 01/02/23 apixaban 5 mg tablet (Eliquis) 5 mg PO BID 01/02/23 01/02/23 Previous Rx's ?Medication ?Instructions ?Recorded doxycycline monohydrate 100 mg 100 mg PO BID #10 caps 01/02/23 capsule amoxicillin 875 mg-potassium 1 tab PO BID #20 tabs 05/01/23 clavulanate 125 mg tablet methylprednisolone 4 mg tablets in See Rx Instructions PO .COMPLEX 05/01/23 a dose pack (Medrol (Nicolas)) #21 ea amoxicillin 875 mg-potassium 1 tab PO BID #20 tabs 01/09/25 clavulanate 125 mg tablet meclizine 25 mg tablet 25 mg PO TID PRN dizziness #20 tabs 12/05/24 amoxicillin 875 mg-potassium 1 tab PO BID #20 tabs 08/09/25 clavulanate 125 mg tablet Allergies Allergy/AdvReac Type Severity Reaction Status Date / Time aspirin Allergy Intermediate Hives Verified 08/09/25 10:49 Review of Systems Review of Systems ROS Unobtainable: All systems reviewed & are unremarkable except as noted in HPI and below Patient History tobacco type: cigarettes alcohol intake frequency: 0-2 drinks per day Exam Narrative Exam Narrative: GEN: well nourished, well appearing female, alert and oriented x 3, patient appears to be in mild distress. HEENT: Atraumatic, pupils are equal round reactive to light, extraocular movements are intact, nares are clear, TMs are clear with no fluid on the left, in the right patient has erythema with some bulge, loss of light reflex and fluid present, there is no conjunctival pallor. Throat is clear without any exudates, erythema, tonsillar enlargement or uvular deviation, no facial droop HEART: Regular rate and rhythm without murmur, clicks, rubs. LUNGS:Lungs clear to auscultation, no wheezes, rales, crackles, chest moves symmetrically ABD:bowel sounds normal, soft, non-tender, no guarding, rebound, rigidity, no masses noted, no hepatosplenomegaly MSCL: Non-tender, no muscle atrophy, muscles strength 5/5 upper and lower extremities, full range of motion, normal gait NEURO:CN 2-12 intact, sensation normal, finger nose finger test normal, heel stern test normal. No dysarthria, no aphasia. Initial Vital Signs Initial Vital Signs: Vital Signs Temperature 97.8 F 08/09/25 10:47 Pulse Rate 84 08/09/25 10:47 Respiratory Rate 18 08/09/25 10:47 Blood Pressure 202/84 H 08/09/25 10:47 Pulse Oximetry 95 08/09/25 10:47 Oxygen Delivery Method Room Air 08/09/25 10:47 Course Orders Ordered: ED Orders 08/09/25 10:52 EKG-12 Lead Stat Vital Signs Vital signs: Vital Signs - 8 hr 08/09/25 10:47 08/09/25 10:57 08/09/25 10:57 Temperature 97.8 F Pulse Rate 84 77 Respiratory Rate 18 19 Blood Pressure 202/84 H 143/68 H Pulse Oximetry 95 97 Oxygen Delivery Method Room Air 08/09/25 11:00 08/09/25 11:00 08/09/25 11:30 Temperature Pulse Rate 73 66 Respiratory Rate 18 18 Blood Pressure 142/63 H Pulse Oximetry 96 97 Oxygen Delivery Method 08/09/25 11:30 08/09/25 12:00 08/09/25 12:00 Temperature Pulse Rate 69 Respiratory Rate 20 Blood Pressure 154/68 H 164/74 H Pulse Oximetry 97 Oxygen Delivery Method MDM - Dizziness ECG Data Attestation: I personally reviewed and interpreted this ECG as follows: Prior ECG tracings: available for review Interpretation: Sinus rhythm rate 85 MD 176 QRS is 78 QTC of 411. Patient has prior from 02/24/2025 which appears similar. [facility] Narrative Medical decision making narrative: 75-year-old female who has a what sounds like vertigo symptoms worsened with movements, discussed with the patient she had workup and evaluation including labs and chemistries which showed a glucose of 253 but no other major changes, she had head and neck CTA at that change which was negative for any significant intracranial arterial abnormalities or abnormalities in the arteries of the neck. She also has a non-con head CT which was negative which showed no acute change in age-related volume loss in [id number] white matter chronic small-vessel ischemic changes. EKG today shows no acute change appears similar to prior on 07/27/2025. After discussion patient does not appear to have any ear infection this could be a possible source for symptoms consistent with a prior similar episode we discussed starting patient oral antibiotic but also discussed possibly obtaining an MR she has had persistent symptoms since before the 27 of July. Patient defers MRI at this time we would like to start oral antibiotics she has follow up on the and if having persistent symptoms we will follow up with them for further workup. We did discuss possibility of stroke and other differential patient expresses understanding. Discharge Plan Departure Patient Disposition: Home Clinical Impression: Vertigo, Otitis media, right Instructions: DI for Vertigo Activity Restrictions/Additional Instructions: You do have what appears to be an ear infection on the right today, this could possibly be a source of your vertigo symptoms but if they are persistent even after treatment with the antibiotics you should have further workup. Take antibiotics until completed Prescription sent to [facility] in [place]. You did have a head and neck CT angio on 07/27/2025 as well as a head and neck CT which were negative at that time when you had sips some as well. The vessels in your head and neck were clear without any major changes to the arteries of the neck or brain. Share this information with your primary care physician if you are having persistent symptoms you will need additional workup and evaluation. Please return if you have worsening symptoms, fevers, severe headaches, sudden changes to vision, any difficulty with speech, new numbness tingling or weakness or difficulty with movement, persistent vomiting or other new or concerning changes. Prescriptions: New amoxicillin-pot clavulanate 875-125 mg tablet 1 tab PO BID Qty: 20 0RF No Action amlodipine 5 mg tablet 5 mg PO DAILY Eliquis 5 mg Tablet 5 mg PO BID doxycycline monohydrate 100 mg capsule 100 mg PO BID Qty: 10 0RF methylprednisolone [Medrol (Nicolas)] 4 mg tablets,dose pack See Rx Instructions .ROUTE .COMPLEX Qty: 21 0RF Rx Instructions: orally per package directions amoxicillin-pot clavulanate 875-125 mg tablet 1 tab PO BID Qty: 20 0RF amoxicillin-pot clavulanate 875-125 mg tablet 1 tab PO BID Qty: 20 0RF meclizine 25 mg tablet 25 mg PO TID PRN (Reason: dizziness) Qty: 20 0RF Referrals: ProviderSaida [Primary Care Provider, Family Practice] Stand Alone Forms: Patient Portal/API
[2025-08-09 12:00] VITALS: BP 164/74; PULSE 69; RESP 20; O2SAT 97
== END 2025-08-09 12:37 | disposition home or self-care (01) ==
PROVIDERS: Emergency Provider Emergency Medicine
DX: R42 Dizziness and giddiness (principal); H66.91 Otitis media, unspecified, right ear; R07.9 Chest pain, unspecified
CPT/HCPCS: 93005; 93010; 99281; 99283

== ENCOUNTER → 2025-08-23 13:05 | Outpatient (CLI) | payer MEDICARE, OTHER, SELFPAY ==
--- NOTE | 2025-08-23 | DI.MRI.S_ITS ---
PROCEDURE: MR HEAD/BRAIN WO CON INDICATIONS: dizziness TECHNIQUE: Non-contrast axial T1 spin echo, axial T2 fast spin echo, sagittal and axial FLAIR, coronal T2 fast spin echo, axial gradient echo, axial diffusion and ADC through the brain. COMPARISON: [facility], CT, CT HEAD/BRAIN WO CON, 07/27/2025, 11:18. FINDINGS: Image quality: Excellent. CSF spaces: Ventricles appear symmetric in size and shape. Basal cisterns are patent. No extra-axial fluid collections. Brain: No intracranial bleeds or mass effects. There is cerebral volume loss for age. There are periventricular and deep white matter chronic small vessel ischemic changes. Brainstem appears normal. Diffusion-weighted images show no acute infarct. No chronic ischemic insults. Normal intravascular flow voids are present. Focus of susceptibility artifact within the inferior right frontal lobe. Skull and face: Calvarial bone marrow is normal in signal. Orbits are normal. Right lens replacement. Sinuses: Left maxillary sinus mucous retention cyst. Sinuses and mastoids are otherwise clear. IMPRESSION: No acute intracranial abnormalities. Age-related global volume loss and chronic microvascular ischemic changes. Focus of susceptibility artifact within the inferior right frontal lobe medially, may represent a cavernoma. Dictated by: John Nolasco M.D. on 08/23/2025 at 16:11 Approved by: John Nolasco M.D. on 08/23/2025 at 16:13
== END ==
LOC: MRI 13:05
DX: R42 Dizziness and giddiness (principal); J34.1 Cyst and mucocele of nose and nasal sinus
CPT/HCPCS: 70551

== ENCOUNTER 2025-09-27 05:23 | Emergency (ER) | payer MEDICARE, OTHER, SELFPAY ==
[2025-09-27] VITALS (7 sets, daily range): BP systolic 135–168; BP diastolic 64–78; PULSE 78–89; RESP 18; TEMP 37.2; O2SAT 94–97; BMI 31.2
--- NOTE | 2025-09-27 06:04 | ED_ITS ---
HPI - General Adult
--- NOTE | 2025-09-27 06:04 | ED.GENADULT ---
HPI - General Adult <Kingsley Mari MD - Last Filed: 09/27/25 07:33> General Chief complaint: Upper Respiratory Symptoms Stated complaint: Sore Throat Time Seen by Provider: 09/27/25 06:01 History of Present Illness HPI narrative: 75-year-old female with a history of hypertension, atrial fibrillation on Eliquis presents with right-sided facial swelling and difficulty swallowing for the past week. She has tried some warm compresses and various home remedies that have not worked. Related Data Home Medications ?Medication ?Instructions ?Recorded ?Confirmed amlodipine 5 mg tablet 5 mg PO DAILY 01/02/23 01/02/23 apixaban 5 mg tablet (Eliquis) 5 mg PO BID 01/02/23 01/02/23 Previous Rx's ?Medication ?Instructions ?Recorded doxycycline monohydrate 100 mg 100 mg PO BID #10 caps 01/02/23 capsule amoxicillin 875 mg-potassium 1 tab PO BID #20 tabs 05/01/23 clavulanate 125 mg tablet methylprednisolone 4 mg tablets in See Rx Instructions PO .COMPLEX 05/01/23 a dose pack (Medrol (Nicolas)) #21 ea amoxicillin 875 mg-potassium 1 tab PO BID #20 tabs 11/26/24 clavulanate 125 mg tablet meclizine 25 mg tablet 25 mg PO TID PRN dizziness #20 tabs 12/05/24 amoxicillin 875 mg-potassium 1 tab PO BID #20 tabs 08/09/25 clavulanate 125 mg tablet amoxicillin 400 mg-potassium 10 ml PO BID #200 mL 09/27/25 clavulanate 57 mg/5 mL oral suspension oxycodone 5 mg/5 mL oral solution 5 mg (5 mL) PO Q6H PRN pain #100 mL 09/27/25 prednisolone 15 mg/5 mL oral 30 mg (10 mL) PO DAILY #40 mL 09/27/25 solution Allergies Allergy/AdvReac Type Severity Reaction Status Date / Time aspirin Allergy Intermediate Hives Verified 09/27/25 06:10 Review of Systems <Kingsley Mari MD - Last Filed: 09/27/25 07:33> Review of Systems ROS Unobtainable: All systems reviewed & are unremarkable except as noted in HPI and below Patient History <Kingsley Mari MD - Last Filed: 09/27/25 07:33> Social History Smoking Status: Former smoker tobacco type: cigarettes alcohol intake frequency: 0-2 drinks per day Exam <Kingsley Mari MD - Last Filed: 09/27/25 07:33> Narrative Exam Narrative: General: Patient appears to be in no acute distress, acting appropriately Head: normocephalic, atraumatic, HEENT: Pupils equal round reactive, eyes tracking well, pain with palpation over the right side of the neck, obvious peritonsillar swelling over the right side. Heart: regular rate and rhythm, no murmurs, rubs, or gallops heard Lungs: clear to auscultation, no adventitious sounds Abdomen: soft , nontender, nondistended, positive bowel sounds Neurological: no focal neurological signs, moving all extremities well, alert and oriented x3, Psych: good judgment ,good insight, mood is normal. Initial Vital Signs Initial Vital Signs: Vital Signs Temperature 99.0 F 09/27/25 06:10 Pulse Rate 89 09/27/25 06:10 Respiratory Rate 18 09/27/25 06:10 Blood Pressure 157/78 H 09/27/25 06:10 Pulse Oximetry 97 09/27/25 06:10 Oxygen Delivery Method Room Air 09/27/25 06:10 <Kurtis Vargas MD - Last Filed: 09/28/25 12:03> Initial Vital Signs Initial Vital Signs: Vital Signs Temperature 99.0 F 09/27/25 06:10 Pulse Rate 89 09/27/25 06:10 Respiratory Rate 18 09/27/25 06:10 Blood Pressure 157/78 H 09/27/25 06:10 Pulse Oximetry 97 09/27/25 06:10 Oxygen Delivery Method Room Air 09/27/25 06:10 Course <Kingsley Mari MD - Last Filed: 09/27/25 07:33> Orders Ordered: Discontinued Medications Dexamethasone (Dexamethasone 10 Mg/Ml Vial) 10 mg IV NOW ONE Stop: 09/27/25 09:13 Last Admin: 09/27/25 09:23 Dose: 10 mg Documented By: JOSEPHINE Ampicillin Sodium/Sulbactam (Sodium 3 gm/ Sodium Chloride) 100 mls @ 200 mls/hr IV NOW ONE Stop: 09/27/25 06:09 Last Infusion: 09/27/25 08:13 Dose: Infused Documented By: Admin: 09/27/25 06:31 Dose: 200 mls/hr Documented By: CARLITOS Morphine Sulfate (Morphine 2 Mg/Ml Inj) 2 mg IV NOW ONE Stop: 09/27/25 06:16 Last Admin: 09/27/25 06:31 Dose: 2 mg Documented By: CARLITOS Vital Signs Vital signs: Vital Signs - 8 hr 09/27/25 06:10 09/27/25 07:35 09/27/25 07:36 Temperature 99.0 F Pulse Rate 89 82 Respiratory Rate 18 Blood Pressure 157/78 H 168/74 H Pulse Oximetry 97 96 Oxygen Delivery Method Room Air 09/27/25 07:36 09/27/25 08:00 09/27/25 08:00 Temperature Pulse Rate 81 79 Respiratory Rate Blood Pressure 135/64 Pulse Oximetry 96 94 Oxygen Delivery Method 09/27/25 08:30 09/27/25 08:30 Temperature Pulse Rate 78 Respiratory Rate Blood Pressure 145/66 H Pulse Oximetry 94 Oxygen Delivery Method <Kurtis Vargas MD - Last Filed: 09/28/25 12:03> Orders Ordered: Discontinued Medications Dexamethasone (Dexamethasone 10 Mg/Ml Vial) 10 mg IV NOW ONE Stop: 09/27/25 09:13 Last Admin: 09/27/25 09:23 Dose: 10 mg Documented By: JOSEPHINE Ampicillin Sodium/Sulbactam (Sodium 3 gm/ Sodium Chloride) 100 mls @ 200 mls/hr IV NOW ONE Stop: 09/27/25 06:09 Last Infusion: 09/27/25 08:13 Dose: Infused Documented By: Admin: 09/27/25 06:31 Dose: 200 mls/hr Documented By: CARLITOS Morphine Sulfate (Morphine 2 Mg/Ml Inj) 2 mg IV NOW ONE Stop: 09/27/25 06:16 Last Admin: 09/27/25 06:31 Dose: 2 mg Documented By: CARLITOS Vital Signs Vital signs: Vital Signs - 8 hr 09/27/25 06:10 09/27/25 07:35 09/27/25 07:36 Temperature 99.0 F Pulse Rate 89 82 Respiratory Rate 18 Blood Pressure 157/78 H 168/74 H Pulse Oximetry 97 96 Oxygen Delivery Method Room Air 09/27/25 07:36 09/27/25 08:00 09/27/25 08:00 Temperature Pulse Rate 81 79 Respiratory Rate Blood Pressure 135/64 Pulse Oximetry 96 94 Oxygen Delivery Method 09/27/25 08:30 09/27/25 08:30 Temperature Pulse Rate 78 Respiratory Rate Blood Pressure 145/66 H Pulse Oximetry 94 Oxygen Delivery Method Medical Decision Making <Kingsley Mari MD - Last Filed: 09/27/25 07:33> Lab Data 09/27/25 06:05 09/27/25 06:05 Labs: Lab Results 09/27/25 09/27/25 Range/Units 06:00 06:05 WBC 9.5 (4.5-11.0) X10^3/uL RBC 5.15 (4.0-5.2) X10^6/uL Hgb 15.6 (12.0-16.0) g/dL Hct 45.3 (36-46) % MCV 88.0 (80-100) fL MCH 30.3 (26-34) PG MCHC 34.4 (30-36) % RDW 13.8 (11.6-14.8) % Plt Count 251 (150-400) X10^3/uL Neut % (Auto) 70.2 (50-75) % Lymph % (Auto) 18.5 L (25-40) % [place] % (Auto) 9.0 (3-14) % Eos % (Auto) 1.2 L (2-4) % Baso % (Auto) 1.1 (0-2) % Neut # (Auto) 6600 (8395-7944) /uL Lymph # (Auto) 1800 (7077-1134) /uL [place] # (Auto) 900 (0-900) /uL Eos # (Auto) 100 (0-450) /uL Baso # (Auto) 100 (0-100) /uL Sodium 139 (137-145) mmol/L Potassium 3.9 (3.4-5.1) mmol/L Chloride 105 (98-107) mmol/L Carbon Dioxide 23 (22-32) mmol/L BUN 9 (7-17) mg/dL Creatinine 0.69 (0.52-1.04) mg/dL Estimated GFR > 60 (>60) mL/min BUN/Creatinine Ratio 13.0 (6-22) Glucose 173 H (70-99) mg/dL Calcium 9.8 (8.4-10.2) mg/dL Total Bilirubin 1.4 H (0.2-1.3) mg/dL AST 24 (14-36) IU/L ALT 22 (<35) IU/L Alkaline Phosphatase 84 (38-126) U/L Total Protein 8.2 (6.3-8.2) g/dL Albumin 4.6 (3.5-5.0) g/dL Globulin 3.6 (1.7-4.1) g/dL Albumin/Globulin Ratio 1.3 (1.0-2.8) Group A Strep (PCR) Negative (Negative) MDM Narrative Medical decision making narrative: 75-year-old female with a presumptive peritonsillar abscess of her right side. Soft tissue neck CT did confirm the peritonsillar abscess. Patient was started on Unasyn for IV antibiotics and was signed out to next physician Dr. Mae <Kurtis Vargas MD - Last Filed: 09/28/25 12:03> Lab Data Labs: Lab Results 09/27/25 09/27/25 Range/Units 06:00 06:05 WBC 9.5 (4.5-11.0) X10^3/uL RBC 5.15 (4.0-5.2) X10^6/uL Hgb 15.6 (12.0-16.0) g/dL Hct 45.3 (36-46) % MCV 88.0 (80-100) fL MCH 30.3 (26-34) PG MCHC 34.4 (30-36) % RDW 13.8 (11.6-14.8) % Plt Count 251 (150-400) X10^3/uL Neut % (Auto) 70.2 (50-75) % Lymph % (Auto) 18.5 L (25-40) % [place] % (Auto) 9.0 (3-14) % Eos % (Auto) 1.2 L (2-4) % Baso % (Auto) 1.1 (0-2) % Neut # (Auto) 6600 (6037-5426) /uL Lymph # (Auto) 1800 (9072-1165) /uL [place] # (Auto) 900 (0-900) /uL Eos # (Auto) 100 (0-450) /uL Baso # (Auto) 100 (0-100) /uL Sodium 139 (137-145) mmol/L Potassium 3.9 (3.4-5.1) mmol/L Chloride 105 (98-107) mmol/L Carbon Dioxide 23 (22-32) mmol/L BUN 9 (7-17) mg/dL Creatinine 0.69 (0.52-1.04) mg/dL Estimated GFR > 60 (>60) mL/min BUN/Creatinine Ratio 13.0 (6-22) Glucose 173 H (70-99) mg/dL Calcium 9.8 (8.4-10.2) mg/dL Total Bilirubin 1.4 H (0.2-1.3) mg/dL AST 24 (14-36) IU/L ALT 22 (<35) IU/L Alkaline Phosphatase 84 (38-126) U/L Total Protein 8.2 (6.3-8.2) g/dL Albumin 4.6 (3.5-5.0) g/dL Globulin 3.6 (1.7-4.1) g/dL Albumin/Globulin Ratio 1.3 (1.0-2.8) Group A Strep (PCR) Negative (Negative) MDM Narrative Medical decision making narrative: 75-year-old female with a presumptive peritonsillar abscess of her right side. Soft tissue neck CT did confirm the peritonsillar abscess. Patient was started on Unasyn for IV antibiotics and was signed out to next physician Dr. Mae 09/27/2025, 8:26 a.m. the patient was ultimately this morning and the CT scan showed right tonsillar abscess 2 x 1.2 cm. We will consult with the ENT on-call. 8:43 a.m., discussed the case with ENT specialist Dr. William agree with oral antibiotic and pain medication, steroid then follow up in the clinic along with return precautions to the ED. 9:12 a.m.. Went to check on the patient when she said she was feeling okay with some pain in her throat. She has has been speaking full sentences and her airway was patent. She was given dexamethasone 10 mg IV and was discharged with Augmentin, oxycodone, prednisolone. Our ENT specialist got her inflammation and we will call her. Return to the ED precautions was given. I asked her to call the ENT doctor office as well. Discharge Plan Departure Patient Disposition: Home Clinical Impression: Tonsillar abscess Instructions: DI for Peritonsillar Abscess -- Adult Activity Restrictions/Additional Instructions: Please come back to the emergency room if any worsening symptoms including but not limited to worsening difficulty swallowing, fever, headache, vomiting, dehydration, difficulty breathing. Please set up follow up with ENT specialist as referral. Please finish antibiotic and drink plenty of fluid. Please call ENT doctor, Otto Krsihna at [phone]. Prescriptions: New amoxicillin-pot clavulanate 400-57 mg/5 mL suspension for reconstitution 10 ml PO BID Qty: 200 0RF oxycodone 5 mg/5 mL solution 5 mg PO Q6H PRN (Reason: pain) Qty: 100 0RF prednisolone 15 mg/5 mL solution 30 mg PO DAILY Qty: 40 0RF No Action amlodipine 5 mg tablet 5 mg PO DAILY Eliquis 5 mg Tablet 5 mg PO BID doxycycline monohydrate 100 mg capsule 100 mg PO BID Qty: 10 0RF methylprednisolone [Medrol (Nicolas)] 4 mg tablets,dose pack See Rx Instructions .ROUTE .COMPLEX Qty: 21 0RF Rx Instructions: orally per package directions amoxicillin-pot clavulanate 875-125 mg tablet 1 tab PO BID Qty: 20 0RF amoxicillin-pot clavulanate 875-125 mg tablet 1 tab PO BID Qty: 20 0RF meclizine 25 mg tablet 25 mg PO TID PRN (Reason: dizziness) Qty: 20 0RF amoxicillin-pot clavulanate 875-125 mg tablet 1 tab PO BID Qty: 20 0RF Referrals: Otto William MD [Physician, Ear, Nose, Throat] Referral Note: Right tonsillar abscess Provider,Saida FLOYD [Primary Care Provider, Family Practice] Stand Alone Forms: Patient Portal/API
--- NOTE | 2025-09-27 06:10 | DI.CT.S_ITS ---
PROCEDURE: CT SOFT TISSUE NECK W CON
[2025-09-27 06:17] LABS: Add Manual Diff / Slide Review NO; Hematocrit 45.3 % (36-46); Hemoglobin 15.6 g/dL (12.0-16.0); Lymphocytes Absolute Auto 1800 /uL (1100-4500); Mean Corpuscular HGB Conc 34.4 % (30-36); Mean Corpuscular Hemoglobin 30.3 PG (26-34); Mean Corpuscular Volume 88.0 fL (80-100); Platelet Count 251 X10^3/uL (150-400)
[2025-09-27 06:26] LABS: Alanine Aminotransferase 22 IU/L (<35); Albumin 4.6 g/dL (3.5-5.0); Albumin Globulin Ratio 1.3 (1.0-2.8); Alkaline Phosphatase 84 U/L (38-126); Blood Urea Nitrogen 9 mg/dL (7-17); Calcium 9.8 mg/dL (8.4-10.2); Carbon Dioxide 23 mmol/L (22-32); Chloride 105 mmol/L (98-107); Estimated Glomerular Filt Rate > 60 mL/min (>60); Globulin 3.6 g/dL (1.7-4.1); Glucose 173 mg/dL (70-99); HEMOLYSIS < 15 (0-50); Potassium 3.9 mmol/L (3.4-5.1); Sodium 139 mmol/L (137-145); Total Protein 8.2 g/dL (6.3-8.2)
[2025-09-27 06:28] LABS: Strep Grp A by PCR Rapid Negative (Negative)
[2025-09-27] MEDS: MORPHINE 2 MG/ML INJ IV (06:31)
[2025-09-27] MEDS: AMPICILLIN/SULBACTAM 3 GM 3 GM in SODIUM CHLORIDE 0.9% 100 ML IV (06:31)
== END 2025-09-27 09:36 | disposition home or self-care (01) ==
PROVIDERS: Emergency Provider Family Medicine
DX: J36 Peritonsillar abscess (principal); Z79.01 Long term (current) use of anticoagulants
CPT/HCPCS: 36415; 70491; 80053; 85025; 87651; 96365; 96366; 96375; 99284; J0295; J1100; J2270; J7050; Q9967